=== PATIENT | female | born 1985 | race Caucasian/White ===

== ENCOUNTER 2024-06-17 19:15 | Emergency (ER) | payer OTHER, SELFPAY ==
[2024-06-17] VITALS (9 sets, daily range): BP systolic 104–113; BP diastolic 56–77; PULSE 62–66; RESP 16; TEMP 36.3; O2SAT 98–100; BMI 36.3
--- OUTSIDE RECORDS SUMMARY | 2024-06-17 19:18 | XMS_ITS | Continuity of Care Document ---
Author Name Mauricio User Keithle[place]-a llowed Address Unknown Organization Unknown Address Unknown Procedures FILTER APPLIED:Only known Procedures with Onset Date within the last 5 years Procedure Date Procedure Provider Additiona l Information Status BASIC METABOLIC PANEL (34692) Completed HEPATIC FUNCTION PANEL (37435) Completed CBC W PLT NO DIFF (79778) Completed LIPASE (97884) Completed URINE POCT (15958) Completed UA W/ SEDIMENT EXAM REFLEXED PER CRITERIA (55860) Completed BASIC METABOLIC PANEL (73204) Completed CBC W PLT NO DIFF (50967) Completed ,SERUM (04913) Completed COMP METABOLIC PANEL (40286) Completed CBC W PLT NO DIFF (12489) Completed LIPASE (91260) Completed COMP METABOLIC PANEL (21056) Completed C-REACTIVE PROTEIN (94665) Completed CBC AND DIFFERENTIAL (80041) Completed LIPASE (84541) Completed ADMISSION MED REC MARKER FOR REPORTING AND BPA'S (21152) Completed ADMISSION MED REC MARKER FOR REPORTING AND BPA'S (87754) Completed URINE POCT (57082) Completed UA W/ SEDIMENT EXAM REFLEXED PER CRITERIA (08923) Completed HEPATIC FUNCTION PANEL (85140) Completed CBC W PLT NO DIFF (14123) Completed BASIC METABOLIC PANEL (08765) Completed LIPASE (14079) Completed CBC W PLT NO DIFF (33093) Completed PROTIME-INR (90858) Comp leted BASIC METABOLIC PANEL (38921) Completed ,SERUM (68494) Completed HEPATIC FUNCTION PANEL (73128) Completed LIPASE (19779) Completed Encounters FILTER APPLIED:Only known Encounters with Admission Date within the last 5 years Encounter Location Admission Discharge Billing Code Brand Lead A suki Emergency [id number]. [id number] YANCY BRICKE[facility] Emergency [id number]. [id number] YANCY BRICKEYS Inpatient [facility] Inpatient [facility] Emergency Emergency [id number]. [id number] ARDHA EVANS Emergency Emergency [id number]. [id number] SHAY SHELL Emergency Emergency [id number]. [id number] KETAN MAJOR Emergency [id number]. [id number] QUOC REAGAN
--- NOTE | 2024-06-17 19:19 | CRLHL7_ITS ---
For Patients: As a result of the 21st Century Cures Act, medical imaging exams and procedure reports are released immediately into your electronic medical record. You may view this report before your referring provider. If you have questions, please contact your health care provider. INDICATION: Chest pain. TECHNIQUE: CT chest without contrast, and CTA chest, abdomen and pelvis acquired with 95 cc Isovue 370 IV contrast, dissection protocol. 2D and 3D MIP images for post-processing were performed and interpreted on an independent workstation, and 3D images were permanently archived. COMPARISON: 06/12/2024. FINDINGS: CHEST: Cardiovascular structures: Stable type B aortic dissection extending from the descending thoracic aorta through the abdominal aorta and into the left common iliac artery. Stable ectatic descending thoracic aorta measuring 3.8 cm. Heart size is normal. Main pulmonary artery is normal in caliber. Mediastinum and lidia: No mass or adenopathy. Lungs and pleura: Areas of linear scarring, unchanged. No acute infiltrates. No suspicious nodules. No pleural effusions or pneumothorax. Chest wall and axilla: No mass or adenopathy. Pectus excavatum, unchanged. Bones: Chronic bilateral anterior rib deformities, possibly related to prior Seda procedure. ABDOMEN AND PELVIS: Liver: Unremarkable. Gallbladder and bile ducts: Status post cholecystectomy. Spleen: Unremarkable. Adrenal glands: Unremarkable. Pancreas: Unremarkable. Kidneys: Bilateral nonobstructive renal calculi. No hydronephrosis. GI tract: Normal in caliber. No evidence of obstruction. Status post appendectomy. Lymph nodes: Unremarkable. Vascular structures: Stable type B aortic dissection extending from the descending thoracic aorta through the abdominal aorta and into the left common iliac artery. Celiac trunk, SMA, CORIE, and bilateral renal arteries arise from the true lumen. Incidental note of retroaortic left renal vein. Miscellaneous: Midline abdominal wall scar. No free air or significant free fluid. Pelvic Organs: Unremarkable. Bones: Unremarkable for age. IMPRESSION: 1. Stable type B aortic dissection extending from the descending thoracic aorta and abdominal aorta to the left common iliac artery. 2. No acute abnormality of the chest, abdomen, or pelvis. 3. Incidental findings as above, similar to prior. Please note that all CT scans at this facility use dose modulation, iterative reconstruction, and/or weight-based dosing when appropriate to reduce radiation dose to as low as reasonably achievable. Dictated by Marcin Sierra MD @ 06/17/2024 9:14:14 PM (Electronically Signed)
[2024-06-17 19:34] LABS: Lactate Sepsis w/Reflex* 0.8 mmol/L (0.5-1.9)
[2024-06-17 19:36] LABS: Basophils Absolute Auto 0.03 K/uL (0.00-0.30); Basophils Percent Auto 0.3 % (0.0-3.0); Eosinophils Absolute Auto 0.35 K/uL (0.00-0.50); Eosinophils Percent Auto 3.7 % (0.0-7.0); Hematocrit 36.9 % (33.0-51.0); Immature Granulocytes Abs Auto 0.01 K/uL (0.00-0.30); Immature Granulocytes Pct Auto 0.1 %; Lymphocytes Percent Auto 19.9 % (20-44); Mean Corpuscular HGB Conc 33 gm/dL (32-36); Mean Corpuscular Hemoglobin 28 pg (26-34); Mean Corpuscular Volume 86 fL (80-100); Monocytes Percent Auto 5.1 % (0.0-11.0); Neutrophils Absolute Auto 6.74 K/uL (1.7-7.0); Neutrophils Percent Auto 70.9 % (42.0-72.0); Platelet Count* 273 K/uL (140-440); RDW Coefficient of Variation % 13.4 % (11.5-15.5)
[2024-06-17 19:48] LABS: Slide Review Reflex No
[2024-06-17 19:51] LABS: Albumin* 4.5 g/dL (3.3-5.0); Chloride* 98 mmol/L (96-114); Potassium* 3.3 mmol/L (3.6-5.1); Sodium* 135 mmol/L (135-149)
[2024-06-17 19:53] LABS: Creatinine* 1.6 mg/dL (0.5-1.5); Est. Creatinine Clearance* 54.33; Estimated Glomerular Filt Rate 43 ml/min
[2024-06-17 19:54] LABS: Alanine Aminotransferase* 33 U/L (4-35); Alkaline Phosphatase* 99 U/L (40-150); Anion Gap 9 mEq/L (7-15); Aspartate Amino Transferase* 41 U/L (12-35); Bilirubin Direct* 0.3 mg/dL (0.0-0.5); Bilirubin Total* 0.5 mg/dL (0.1-1.5); Blood Urea Nitrogen* 23 mg/dL (5-24); Calcium* 9.5 mg/dL (8.4-10.6); Carbon Dioxide* 28 mmol/L (20-32); Glucose* 100 mg/dL (60-115); INR 0.87 (0.91-1.10); Prothrombin Time 12.4 Seconds; Total Protein* 7.5 g/dL (6.0-8.3)
[2024-06-17] MEDS: ONDANSETRON 2 MG/ML inj 4 MG IVP (20:21)
[2024-06-17] MEDS: HYDROmorphone 0.5 mg/0.5 ml inj IVP (20:39)
--- NOTE | 2024-06-17 21:26 | ED_ITS ---
HPI - General Adult General Date Seen: 06/17/24 Chief complaint: Chest Pain Stated complaint: Chest pain Time Seen by Provider: 06/17/24 19:19 Source: patient History of Present Illness HPI narrative: Patient is a 38-year-old woman with past medical history notable for type B aortic dissection in 2022. She tells me she was seen at [place] and then transferred to [place]. She was treated medically. She came in by EMS today after developing pain in the middle of her back which she says was there little bit over the past couple of days but much worse today. She says it feels like her previous dissection. She has some pain that radiates into the left shoulder. She does not have chest pain. She says that when she leans forward she feels like she is going to pass out. She has not actually fainted however. She was sick a couple of weeks ago with some vomiting although that is improved. She does not have abdominal pain. No recent trauma. Medics reported asymmetry in her upper extremity blood pressures. Related Data Allergies Allergy/AdvReac Type Severity Reaction Status Date / Time metoclopramide (From Reglan) Allergy Severe Verified 06/17/24 19:24 morphine Allergy Severe Verified 06/17/24 19:24 Quinolones AdvReac Verified 06/17/24 19:24 Review of Systems Status of ROS: Reports: 10 or more systems reviewed and unremarkable except as noted in History and below Exam Narrative: Exam Narrative: Vital signs reviewed In general, alert, nontoxic woman. She looks comfortable, breathing easily. Head: Normocephalic, atraumatic. Eyes: Sclera clear. Pupils equal and reactive. ENT: Mucous membranes moist. Neck: Supple without adenopathy. Heart: Regular rate and rhythm without murmur. Lungs: Clear. No increased work of breathing, crackles or wheezes. Abdomen: Soft, nontender to palpation. No obvious masses. Extremities: Well perfused, pulses intact. No significant edema. Neurologic: Alert, conversant. Speech fluent, face symmetric. Moves all extremities equally. Pulses are intact in both feet. Skin: Warm, dry well perfused. Affect: Normal. Const: Vital Signs, click to edit/add: Vital Signs - 24 hr 06/17/24 19:17 06/17/24 19:17 06/17/24 19:19 Temperature 97.4 F L Pulse Rate Pulse Rate [Right Pulse Oximeter] 66 Respiratory Rate 16 Blood Pressure Blood Pressure [Ri ght Upper Arm] 108/59 L 107/61 Pulse Oximetry 98 98 Oxygen Delivery Me thod Room Air 06/17/24 19:30 06/17/24 19:55 06/17/24 20:03 Temperature Pulse Rate 62 Pulse Rate [Right Pulse Oximeter] Respiratory Rate Blood Pressure 113/60 Blood Pressure [Ri ght Upper Arm] 104/56 L 108/77 Pulse Oximetry 100 Oxygen Delivery Me thod 06/17/24 20:04 06/17/24 20:08 06/17/24 20:12 Temperature Pulse Rate 63 63 Pulse Rate [Right Pulse Oximeter] Respiratory Rate Blood Pressure 111/65 Blood Pressure [Ri ght Upper Arm] 108/59 L Pulse Oximetry 99 99 Oxygen Delivery Me thod 06/17/24 20:15 Temperature Pulse Rate 62 Pulse Rate [Right Pulse Oximeter] Respiratory Rate Blood Pressure Blood Pressure [Ri ght Upper Arm] Pulse Oximetry 100 Oxygen Delivery Me thod Course Course ED Course: On arrival, she was hooked up to cardiac and oximetry monitoring, an IV was established an EKG was done. EKG showed a normal sinus rhythm, ventricular rate of 62. She had no acute ST segment changes, unremarkable T-waves. Labs were ordered and a CT scan dissection protocol was ordered as well. Labs are notable for a normal white blood cell count of 9.5, no left shift. Hemoglobin is 12. INR 8.87, metabolic panel notable for a potassium of 3.3, creatinine is 1.6. I am not certain of her baseline and she does not know either. Otherwise metabolic panel was normal. Her blood sugar was 100, lactate of 0.8, LFTs unremarkable aside from a very minimally elevated AST of 41. Point care troponin was 0. CT scan of the chest abdomen and pelvis dissection protocol by my review showed a type B dissection of the aorta, we did not have comparison is available for review here. We did check blood pressures in both arms here, her systolic pressures in both arms have been around 110, no hypertension. She requested pain medications, notes an allergy to morphine, was given Dilaudid without issue. She also had some Zofran. CT was read by Radiology as showing a stable type B aortic dissection descending thoracic aorta at to the left common iliac artery. There were no other acute abnormalities of the chest abdomen or pelvis. She has nonobstructing kidney stones but no hydronephrosis. Case was reviewed as well with Dr. Cruz, labor relations representative for Cardiology at [facility]. He reviewed the images as well, agrees that this is stable, blood pressure is well controlled, does not feel there is anything else to do from the standpoint of dissection. I have reviewed all this with her. I do not have a clear explanation for her back pain, may be musculoskeletal, but does not appear to be cardiac, vascular, or related to another acute process in the chest abdomen or pelvis. She is concerned about her feeling of faintness when she leans over, will go ahead and give her little bit of normal saline. Unclear to me whether she has some baseline kidney disease or whether she might be a little dehydrated. She was ambulatory to the bathroom without difficulty. She normally doctors in [place], where she lives. According to the senior business objects developer, she had several visits in their system for back and chest pain of undetermined etiology, not clearly related to her dissection. Review of prescription monitoring database shows that she seems to have been on chronic oxycodone at least throughout 2023. This was last filled in March of 2024. It is unclear what the chronic oxycodone was treating. I would recommend against using narcotics for this current pain given absence of a clear diagnosis at this time. Recommend Tylenol, given her creatinine of 1.6, ice or heat, primary care follow-up if not improving over the weekend. Return any time for acute worsening. Vital Signs Vital signs: Initial Vital Signs Temperature 97.4 F L 06/17/24 19:17 Temperature Source Temporal Artery Scan 06/17/24 19:17 Pulse Rate 66 06/17/24 19:17 Pulse Rhythm Regular 06/17/24 19:17 Pulse Strength 3+ Normal 06/17/24 19:17 Respiratory Rate 16 06/17/24 19:17 Blood Pressure 108/59 L 06/17/24 19:17 Blood Pressure Mean 75 06/17/24 19:17 Blood Pressure Position Supine 06/17/24 19:17 Pulse Oximetry 98 06/17/24 19:17 Oxygen Delivery Method Room Air 06/17/24 19:17 Vital Signs Temperature 97.4 F L 06/17/24 19:17 Pulse Rate 66 06/17/24 19:17 Respiratory Rate 16 06/17/24 19:17 Blood Pressure 108/59 L 06/17/24 19:17 Pulse Oximetry 98 06/17/24 19:17 Oxygen Delivery Method Room Air 06/17/24 19:17 Temperature 97.4 F L 06/17/24 19:17 Pulse Rate 62 06/17/24 20:15 Respiratory Rate 16 06/17/24 19:17 Blood Pressure 111/65 06/17/24 20:12 Pulse Oximetry 100 06/17/24 20:15 Oxygen Delivery Method Room Air 06/17/24 19:17 Medications Administered Medications: Discontinued Medications Generic Name Dose Route Start Last Admin Trade Name Freq PRN Reason Stop Dose Admin Hydromorphone HCl 0.5 mg 06/17/24 20:34 06/17/24 20:39 Hydromorphone 0.5 Mg/0.5 Ml Inj IVP 06/17/24 20:35 0.5 mg ONCE ONE Administration Sodium Chloride 500 mls @ 500 mls/hr 06/17/24 21:36 06/17/24 21:57 0.9 % Sodium Chloride 500 Ml IV 06/17/24 22:35 500 mls/hr .Q1H ONE Administration Ondansetron HCl 4 mg 06/17/24 20:15 06/17/24 20:21 Ondansetron 2 Mg/Ml Inj IVP 06/17/24 20:16 4 mg ONCE ONE Administration Medical Decision Making Lab Data Labs: Lab Results 06/17/24 Range/Units 19:31 WBC 9.50 (4.50-11.00) K/uL RBC 4.30 (4.00-5.20) m/uL Hgb 12.0 (12.0-16.0) gm/dL Hct 36.9 (33.0-51.0) % MCV 86 (80-100) fL MCH 28 (26-34) pg MCHC 33 (32-36) gm/dL RDW Coeff of Xavi 13.4 (11.5-15.5) % Plt Count 273 (140-440) K/uL Neut % (Auto) 70.9 (42.0-72.0) % Lymph % (Auto) 19.9 L (20-44) % [place] % (Auto) 5.1 (0.0-11.0) % Eos % (Auto) 3.7 (0.0-7.0) % Baso % (Auto) 0.3 (0.0-3.0) % Neut # (Auto) 6.74 (1.7-7.0) K/uL Lymph # (Auto) 1.90 (0.90-2.90) K/uL [place] # (Auto) 0.50 (0.00-0.90) K/UL Eos # (Auto) 0.35 (0.00-0.50) K/uL Baso # (Auto) 0.03 (0.00-0.30) K/uL Abs Immat Gran (auto) 0.01 (0.00-0.30) K/uL Imm/Tot Granulo (auto) 0.1 % INR 0.87 L (0.91-1.10) Sodium 135 (135-149) mmol/L Potassium 3.3 L (3.6-5.1) mmol/L Chloride 98 (96-114) mmol/L Carbon Dioxide 28 (20-32) mmol/L Anion Gap 9 (7-15) mEq/L BUN 23 (5-24) mg/dL Creatinine 1.6 H (0.5-1.5) mg/dL Estimated Creat Clear 54.33 Estimated GFR 43 ml/min Glucose 100 (60-115) mg/dL Lactate 0.8 (0.5-1.9) mmol/L Calcium 9.5 (8.4-10.6) mg/dL Total Bilirubin 0.5 (0.1-1.5) mg/dL Direct Bilirubin 0.3 (0.0-0.5) mg/dL AST 41 H (12-35) U/L ALT 33 (4-35) U/L Alkaline Phosphatase 99 (40-150) U/L Total Protein 7.5 (6.0-8.3) g/dL Albumin 4.5 (3.3-5.0) g/dL POC Troponin I 0.00 L (0.01-0.04) ng/ml Discharge Plan Discharge Clinical Impression: Back pain, History of aortic dissection Patient Disposition: Home, Self-Care Condition: Stable Instructions: Back Pain (ED) Additional Instructions: CT scans of your chest, abdomen and pelvis show your dissection to be stable. There are no other acute findings. Etiology of your back pain is unclear but this may be musculoskeletal. I would use Tylenol, ice and/or heat for now. Your kidney function was just a little bit elevated at 1.6, so I would avoid ibuprofen for now. If you are not improving over the weekend, please follow-up with your regular doctor next week. Return any time for new or worsening symptoms. Activity Level: No Restrictions Discharge Diet: Regular Follow Up/Referrals: Ye Zuniga MD [Primary Care Provider] - Stand Alone Forms: [facility] Info Instructions
--- OUTSIDE RECORDS SUMMARY | 2024-06-17 21:56 | XMS_ITS | Clinical Summary ---
Author Organization [place] Address [address] [place] [id number] Care Team Providers Care Casey Saw Operator Name Role Phone Ye Zuniga MD Primary Care Provider [phone] Allergies Active Allergy Reactions Criticality Noted Date Comments Metoclopramide Anxiety High 11/23/2019 Quinolones Other (See Comments) 11/04/2022 Fluoroquinolone - Type B AAA Medications amphetamine-dext roamphetamine (ADDERALL XR) 20 MG 24 hr capsule Take 20 mg by mouth daily. Active olmesartan (BENICAR) 40 MG tablet Take 40 mg by mouth daily. Active omeprazole (PRILOSEC) [address] capsule Take 20 mg by mouth daily. Active ondansetron (ZOFRAN ODT) 4 MG ODT tab Take 4 mg by mouth every 8 hours as needed for nausea. Active spironolactone (ALDACTONE) 100 MG tablet Take 100 mg by mouth daily. Active SUMAtriptan (IMITREX) 50 MG tablet Take 50 mg by mouth at onset of headache for migraine. Active tirzepatide-[employer]ig [employer] (ZEPBOUND) 2.5 MG/0.5ML prefilled pen Inject 2.5 mg subcutaneously every 7 days. Active traZODone (DESYREL) 100 MG tablet Take 100 mg by mouth nightly as needed for sleep. Active FLUoxetine (PROZAC) 20 MG capsule Take 20 mg by mouth daily. Active Vitamin D3 (CHOLECALCIFEROL ) 25 mcg (1000 units) tablet Take 25 mcg by mouth daily. Active medroxyPROGESTER one (DEPO-PROVERA) 150 MG/ML IM injection Inject 150 mg into the muscle every 3 months. Active albuterol (PROAIR HFA/PROVENTIL HFA/VENTOLIN HFA) 108 (90 Base) MCG/ACT inhaler Inhale 2 puffs into the lungs every 6 hours as needed for shortness of breath. Active amLODIPine (NORVASC) 10 MG tabletIndication s:Benign essential hypertension Take 1 tablet (10 mg) by mouth daily. 30 tablet 02/10/20 24 Active olopatadine (PATADAY) 0.2 % ophthalmic solution 1 drop daily as needed (Allergies). Active sennosides (SENOKOT) 8.6 MG tabletIndication s:Acute appendicitis with perforation, localized peritonitis, and abscess, without gangrene Take 1-2 tablets by mouth 2 times daily as needed for constipation. 30 tablet 1 02/24/20 24 Active gabapentin (NEURONTIN) 100 MG capsuleIndicatio ns:Acute appendicitis with perforation, localized peritonitis, and abscess, without gangrene Take 2 capsules (200 mg) by mouth 3 times daily for 14 days. 84 capsule 02/25/20 24 Active oxyCODONE (ROXICODONE) 10 MG tabletIndication s:Acute appendicitis with perforation, localized peritonitis, and abscess, without gangrene Take 1 tablet (10 mg) by mouth every 3 hours as needed for moderate pain or severe pain. 40 tablet 02/25/20 24 Active carvedilol (COREG) 25 MG tabletIndication s:Benign essential hypertension,Chr onic dissection of thoracic aorta (H) Take 1.5 tablets (37.5 mg) by mouth 2 times daily (with meals). 90 tablet 02/25/20 24 Active hydrALAZINE (APRESOLINE) 100 MG tabletIndication s:Benign essential hypertension,Chr onic dissection of thoracic aorta (H) Take 1 tablet (100 mg) by mouth every 8 hours. 90 tablet 02/25/20 24 Active Active Problems Problem Noted Date Diagnosed Date Acute appendicitis with perf oration, localized peritonitis, and abscess, without gangrene 02/15/2024 Perforated appendicitis 02/04/2024 Pectus excavatum 07/09/2011 Social History Tobacco Use Types Packs/Day Years Used Date Smoking Tobacco: Never Alcohol Use Standard Drinks/Week Comments Yes 0 (1 standard drink = 0.6 oz pur e alcohol) occassional Adolescent Education Answer Date Record ed Getting School Help Needed Not on file 03/22 Food Insecurity Answer Date Recorded Within the past 12 months, d id you worry that your food would run out before you got money to buy more? No 02/20/2024 Within the past 12 months, d id the food you bought just not last and you didn t have money to get more? No 02/20/2024 Housing Stability Answer Date Recorded Do you have housing? (Mehreen vasquez is defined as stable permanent housing and does not include staying ouside in a car, in a tent, in an abandoned building, in an overnight retirement, or couch-surfing.) Yes 02/20/2024 Are you worried about losing your housing? No 02/20/2024 Financial Resource Strain Answer Date R ecorded Within the past 12 months, h ave you or your family members you live with been unable to get utilities (heat, electricity) when it was really needed? No 02/20/2024 Transportation Needs Answer Date Record ed Within the past 12 months, h as lack of transportation kept you from medical appointments, getting your medicines, non-medical meetings or appointments, work, or from getting things that you need? No 02/20/2024 Interpersonal Safety Answer Date Record ed Do you feel physically and e motionally safe where you currently live? Yes 02/16/2024 Within the past 12 months, h ave you been hit, slapped, kicked or otherwise physically hurt by someone? No 02/16/2024 Within the past 12 months, h ave you been humiliated or emotionally abused in other ways by your partner or ex-partner? No 02/16/2024 Comments No Sex and Gender Information Value Date Recorded Sex Assigned at Not on file Legal Sex Female 4:01 AM [employer] Gender Identity Not on file Sexual Orientation Not on file Last Filed Vital Signs Vital Sign Reading Time Taken Comments Blood Pressure 136/62 02/25/2024 8:57 AM CDT Pulse 94 02/25/2024 7:52 AM CDT Temperature 36.8 C (98.3 F) 02/25/2024 7:52 AM CDT Respiratory Rate 16 02/25/2024 7:52 AM CDT Oxygen Saturation 96% 02/25/2024 7:52 AM CDT Inhaled Oxygen Concentration - - Weight 126.8 kg (279 lb 8.7 oz) 02/21/2024 5:47 AM CDT Height 180.3 cm (5' 11) 02/15/2024 2:43 PM CDT Body Mass Index 38.99 02/15/2024 2:43 PM CDT Plan of Treatment Health Maintenance Due Date Last Done Comments ADVANCE CARE PLANNING 1987 ANNUAL REVIEW OF HM ORDERS 1987 COVID-19 Vaccine (#1) 1992 HIV SCREENING 2002 HEPATITIS C SCREENING 2005 Pneumococcal Vaccine: Pediatrics (0 to 5 Years) and At-Risk Patients (6 to 49 Years) (1 of 2 - PCV) 2006 INFLUENZA VACCINE (#1) 2024 3, 02/14/2011, 02/21/2010 PAP 03/19/2024 03/19/2021, 01/01/2015 YEARLY PREVENTIVE VISIT 03/30/2024 03/30/2023, 03/19 PHQ-2 (once per calendar year) 2024 BMP 02/22/2025 02/23/2024, 02/05, 02/19/2024, Additional history exists GLUCOSE 02/22/2027 02/23/2024, 02/05, 02/20/2024, Additional history exists DTAP/TDAP/TD IMMUNIZATION (4 - Td or Tdap) 03/19/2031 03/19/2021, 07/07/2010, 09/30/1999 RSV VACCINE (1 - 1-dose 75+ series) 2062 HEPATITIS B IMMUNIZATION Completed 005, 10/24/2004, 09/25/2004 HPV IMMUNIZATION Completed 02/21/2007, , 08/09/2006 MENINGITIS IMMUNIZATION Aged Out No l onger eligible based on patient's age to complete this topic RSV MONOCLONAL ANTIBODY Aged Out No l onger eligible based on patient's age to complete this topic Procedures Procedure Name Priority Date/Time Associated Diagnosis Comments BASIC METABOLIC PANEL Routine 02/23/2024 7:10 AM CDT from Last 3 Months or Most Recently Relevant to Health Maintenance Results * (ABNORMAL) Basic metabolic panel (02/23/2024 7:10 AM CDT) Sodium 139 135 - 145 mmol/L [facility]/23[facility]2024 [facility]:30 [facility] Potassium 3.6 3.4 - 5.3 mmol/L 02/23/2024 8:30 AM CDT LABORATORY Chloride 101 98 - 107 mmol/L 02/23/2024 8:30 AM T LABORATORY Carbon Dioxide (CO2) 28 22 - 29 mmol/L 02/23/2024 8:30 AM [facility] Anion Gap 10 7 - 15 mmol/L 02/23/2024 8:30 AM CDT LABORATORY Urea Nitrogen 4.4(L) 6.0 - 20.0 mg/dL 02/23/2024 8:30 AM CDT LABORATORY Creatinine 0.52 0.51 - 0.95 mg/dL 02/23/2024 8:30 AM CDT LABORATORY GFR Estimate >90 >60 mL/min/1.7 3m2 02/23/2024 8:30 AM [facility] Comment:eGFR calculated usin 2020 CKD-EPI equation. Calcium 8.8 8.8 - 10.4 mg/dL 02/23/2024 8:30 AM [facility] Comment:Reference intervals for this test were updated on 12/21/2023 to reflect our healthy population more accurately. There may be differences in the flagging of prior results with similar values performed with this method. Those prior results can be interpreted in the context of the updated reference intervals. Glucose 97 70 - 99 mg/dL 02/23/2024 8:30 AM [facility] Blood STRUCTURE OF RIGHT UPPER LIMB / Unknown Venipuncture / Unknown 02/23/2024 7:10 AM CDT 02/23/2024 7:49 AM CDT us Richar Agudelo MD LAB - BLOOD ORDERABLES Final Re sult LABORATORY [facility] [address], [address] [place] [address], [place] [phone] from Last 3 Months or Most Recently Relevant to Health Maintenance Insurance [employer] Member Subscriber Plan / Payer (Ef fective 2018-Present) Name:Kaur Rudolph Relation to Subscriber:Spouse Name:JEANETH RUDOLPH Date of :1985 (Home) Address: [address] [place] [address] Payer ID:[id number] (NAIC) Type:O Address: [place] [phone] [employer] Member Subscriber Plan / Payer (Ef fective 2018-Present) Name:Kaur Rudolph Relation to Subscriber:Spouse Name:JEANETH RUDOLPH Date of :1985 (Home) Address: [address] [place] [address] Payer ID:[id number] (NAIC) Type:O Address: [place] [phone] [employer] Advance Directives For more information, please contact: [phone] * Full Code (Latest Code Status on File) Date Activated Date Inactivated Comments 02/15/2024 11:43 PM 02/25/2024 4:04 PM All basic a nd advanced life-sustaining interventions are performed as appropriate Question Answer Comments Code status determined by: Discussion with patie nt/ legal decision maker * Full Code Date Activated Date Inactivated Comments 02/04/2024 10:35 PM 02/10/2024 5:44 PM All basic an d advanced life-sustaining interventions are performed as appropriate Question Answer Comments Code status determined by: Discussion with patie nt/ legal decision maker Care Teams Casey Saw Operator Relationship Specialty Start Date End Date Ye Zuniga MD [address] [place] [address] [place] [id number] PCP - General 02/22/24
--- OUTSIDE RECORDS SUMMARY | 2024-06-17 21:56 | XMS_ITS | Clinical Summary ---
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 Primary Care Marko thomas Source Comments Patient records contain information from all sites at [facility]. For routine questions regarding patient records, call [phone] during business hours, M-F 8:00 AM - 5:00 PM Central Time. Record requests for emergency care only can be directed to [phone] at any time.[facility] Allergies Active Allergy Reactions Criticality Noted Date Comments Metoclopramide Anxiety High 11/23/2019 Morphine GI intolerance 03/02/2024 vomiting Quinolones Other (see comments) 11/04/2022 Fluoroquinolone - Type B AAA Medications * This document contains information received from the source organization and may not represent a complete record from that organization. loratadine (CLARITIN) 10 mg tablet Take 10 mg by mouth daily as needed for allergies. Active acetaminophen (TYLENOL) 500 mg tablet Take 2 tablets (1,000 mg total) by mouth every 6 (six) hours as needed for pain. 300 tablet 3 5:47 PM [facility] 04/12/20 23 Active sennosides-docusat e sodium (SENOKOT-S) 8.6-50 mg per tablet Take 1-2 tablets by mouth at bedtime as needed for constipation. Active ondansetron ODT (ZOFRAN-ODT) 4 mg disintegrating tablet Dissolve 1 tablet (4 mg total) in the mouth as needed for nausea or vomiting. 30 tablet 1 08/13/19 24 Active albuterol 90 mcg/actuation inhaler Inhale 2 puffs 4 (four) times a day as needed for wheezing or shortness of breath. 18 g 10/27/19 24 Active traZODone (DESYREL) 100 mg tablet Take 1 tablet (100 mg total) by mouth at bedtime as needed for sleep. 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 180 tablet 3 11/19/19 24 Active amLODIPine (NORVASC) 5 mg tabletIndications: Hypertension Essential Primary,Dissection Aorta (HCC) Take 1 tablet (5 mg total) by mouth daily. 90 tablet 3 11/19/19 24 025 Active omeprazole (PriLOSEC) [address] capsule Take 1 capsule (20 mg total) by mouth every morning before breakfast. 90 capsule 2 11/24/19 24 Active FLUoxetine (PROzac) 20 mg capsuleIndications :Anxiety Generalized Disorder Take 1 capsule (20 mg total) by mouth daily. 90 capsule 3 02/15/20 24 Active diphenhydrAMINE (BenadryL) 25 mg tablet Take 25-50 mg by mouth 2 (two) times a day as needed. Active hydrALAZINE (Apresoline) 100 mg tablet Take 100 mg by mouth every 8 (eight) hours as needed (as needed for elevated BP). 02/25/20 24 Active polyethylene glycol (Miralax) 17 gram powder packetIndications: constipation Take 1 packet by mouth daily as needed for constipation Indications: constipation. Dissolve each 17 g dose in 240 mLs (8 ounces) of beverage. 03/05/20 24 Active methocarbamoL (Robaxin) 750 mg tabletIndications: Spasm Muscle take 1 tablet by mouth every 8 hours as needed for muscle spasm 40 tablet 3 03/21/20 Active NaCl 0.9 % irrigation IRRIGATE WITH 10 ML DIRECTED 3 TIMES DAILY. MOIST TO DRY DRESSING CHANGES 1000 mL 03/20/20 Active NORMAL SALINE FLUSH KIT 10 ML, ACH,Indications:Wo und Infection Subsequent Use as directed 99 kit 03/22/20 Active oxyCODONE (Roxicodone) 10 mg IR tabletIndications: Chronic Pain/Nonacute Pain Take 1 tablet (10 mg total) by mouth every 3 (three) hours as needed for pain Indication: Chronic Pain/Nonacute Pain. Do not take with acute post-surgical prescription 90 tablet 03/31/20 Active OLANZapine (ZyPREXA Zydis) 5 mg disintegrating tablet DISSOLVE 1 TABLET IN MOUTH EVERY 8 HOURS NEEDED FOR NAUSEA AND VOMITING FOR UP TO 20 DOSES Active tirzepatide (Zepbound) 2.5 mg/0.5 mL injection penIndications:Obe sity Body Mass Index 30-39.9 Adult Inject 2.5 mg under the skin every 7 (seven) days. Follow prescriber's dose escalation instructions as tolerated. 2 mL 1 04/28/20 24 Active Additional Information Patient not taking.Reported on 05/17/2024 tirzepatide (Zepbound) 5 mg/0.5 mL injection penIndications:Obe sity Body Mass Index 30-39.9 Adult Inject 5 mg under the skin every 7 (seven) days. Follow prescriber's dose escalation instructions. 2 mL 2 04/28/20 24 Active Additional Information Patient not taking.Reported on 05/17/2024 tirzepatide (Zepbound) 7.5 mg/0.5 mL injection penIndications:Obe sity Body Mass Index 30-39.9 Adult Inject 7.5 mg under the skin every 7 (seven) days. Follow prescriber's dose escalation instructions. 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 30 capsule 07/28/19 25 025 Active spironolactone (Aldactone) 100 mg tablet Take 1 tablet (100 mg total) by mouth daily. 90 tablet 3 06/02/20 24 Active SUMAtriptan (Imitrex) 50 mg tabletIndications: Migraine Without Aura Not Intractable Without Status Migrainosus Take 1 tablet (50 mg total) by mouth as needed for migraine. May repeat dose once in 2 hours if migraine is unresolved. Do not exceed 200 mg in 24 hours. 9 tablet 3 06/05/20 24 Active olmesartan (Benicar) 40 mg tabletIndications: Hypertension Essential Primary Take 1 tablet (40 mg total) by mouth daily. 90 tablet 3 06/05/20 24 Active olmesartan (BENICAR) 40 mg tabletIndications: Hypertension Essential Primary Take 1 tablet (40 mg total) by mouth daily. 90 tablet 3 07/19/19 24 024 Discontin ued(Reord er) SUMAtriptan (IMITREX) 50 mg tabletIndications: Migraine Without Aura Not Intractable Without Status Migrainosus TAKE 1 TABLET BY MOUTH NEEDED FOR MIGRAINE - MAY REPEAT ONCE IN 2 HOURS IF UNRESOLVED - MAX 4 TABLETS IN 24 HOURS 9 tablet 3 10/15/19 24 024 Discontin ued(Reord er) spironolactone (Aldactone) 100 mg tablet Take 1 tablet (100 mg total) by mouth daily. 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 Dystonia 07/19/2023 Attention Deficit Hyperactiv ity Disorder Predominantly Inattentive Type 07/19/2023 Pain Chest 04/11/2023 Hypertensive Heart Disease Without Heart Failure 03/30/2023 Sleep Apnea 01/05/2023 Dissection Aorta 09/14/2022 Fracture Rib Multiple Closed Initial 05/19/2019 Effusion Pleural 08/21/2018 Other Acute Postprocedural Pain 08/21/2018 Chronic Pain Syndrome 08/11/2018 Overview (11/03/2023): Copied from 10/05/2023 PCP note Patient meets the following inclusion criteria: Daily use > 3 months Anticipated filler leaf cutter long use This patient is expected to be on controlled substances filler leaf cutter long. Diagnosis: Chronic pain syndrome/pectus excavatum/aortic dissection (ICD-10 code G89.4/Q67.6/I71.0) Previous interventions: Heat/ice, medical cannabis, physical therapy, surgery Medication prescribed: Oxycodone 10 mg Duration of prescription: Four weeks Number of tablets/duration: 90 Tapering plan: No Frequency of visits: 3-6 months months MNPMP review/documentation: Yes Initial drug screening requested: Yes Urine screening frequency: annually Pharmacy: [facility] 03/14/2018 Obesity Body Mass Index 30-39.9 Adult 02/17/2017 Overview (02/28/2017): Body mass index (BMI) 40.0-44.9, adult\.br\Rule activated problem due to BMI 40- 44 posted on 02/17 at 13:31 CDT. Hypertension Essential Primary 10/30/2016 Overview (12/22/2016): Hypertension (HTN) NOS Migraine Without Aura Not In tractable Without Status Migrainosus 03/12/2015 Pain Cervical 03/12/2015 Administrative Purpose Exam 12/04/2014 Overview (03/30/2018): Overview: Migraine roxicodone 5 mg capsule for severe migraine. Has imitrex as first line. 15 capsules every 2-3 months. Depression Anxiety 09/18/2011 Polycystic Ovary Syndrome 03/16/2011 Lumbosacral spondylosis without myelopathy 10/20 Sprain Of Ligaments Of Cervical Spine Initial En counter 07/28/2010 Rhinitis Allergic 09/19/2007 Anxiety Generalized Disorder Resolved Problems Problem Noted Date Diagnosed Date Resolved Date History Of Falling 01/26/2020 3 Non-Pressure Chronic Ulcer O f Skin Of Other Sites Limited To Breakdown Of Skin 12/16/201810/02 Hypothyroidism 09/01/2011 12/11/2022 Obesity Unspecified 03/31/2007 10/04/19 19 Encounters Date Type Department Care Team Description 06/13/[address] [facility] [place] [facility] Ye Zuniga M.B.BJered, Katlyn 06/04/2024 Refill Department of Family Medicine, [facility], in [place], [place] [address] [place] [address] Ye Zuniga M.B.BSimaSSima, Katlyn Med Refill 06/02/2024 Refill Department of Vascular Medicine in [place], [place] [address] [place] [address] Juan Carlos Reese M.D. 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 Management Contraceptive (Primary Dx) 05/08/2024 Orders Only Department of Obstetrics and Gynecology in [place], [place] [address] [place] [phone] Yomi Chin M.D. Management Contraceptive (Primary Dx) 04/26/2024 Refill Division of Endocrinology in [place], [place] [address] [place] [address] Sal Welch M.D. Med Refill 04/19/2024 11:06 AM [facility] - 04/19/2024 11:59 PM [facility] Emergency [facility] [address] [place] [phone] Discharge Disposition: Home or Self Care 04/19/2024 Orders Only Senior Services in [facility] [address] [place] [phone] Rossi Saha APRN, C.N.P. 04/18/2024 11:00 AM [facility] Nurse Only Department of Obstetrics and Gynecology in [place], [place] [address] [place] [phone] Anthony Foss Jr., M.D. Skillestad, Allyson S, L.P.N. Nurse Visit (Depo Provera injection ) Discharge Disposition: Home or Self Care 04/18/2024 Clinical Communication Department of Family Medicine, [facility], in [place], [place] [address] [place] [address] Ye Zuniga M.B.B.S., Katlyn 04/14/2024 1:12 PM [facility] - 04/14/2024 11:59 PM [facility] Hospital Encounter Department of Radiology, [facility], in [place], [place] [address] [place] [address] iVviana Sevilla APRN, C.N.PSima, M.S.N. Infection Following A Procedure Deep Incisional Surgical Site Initial Encounter Discharge Disposition: Home or Self Care 04/11/2024 8:30 AM [facility] Office Visit Department of Family Medicine, [facility], in [place], [place] [address] [place] [address] Ye Zuniga M.B.B.SSima, M.D. 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 Med Question (Oxycodone ) 03/28/2024 12:56 PM CDT - 03/28/2024 11:59 PM CDT Emergency [facility] [address] [place] [phone] Discharge Disposition: Home or Self Care 03/28/2024 Clinical Communication Department of [facility], [facility], in [address] [phone] Ye Zuniga M.B.BKatlyn Lawton PandaDoc Form ([facility] SN for dressing changes) 03/28/2024 Clinical Communication Department of [facility], in [address] [phone] Ye Zuniga M.B.BKatlyn Lawton PandaDoc Form (Located Within [facility] - Verbal Order - Dressing Changes 03/27/24) 03/27/2024 Clinical Communication Department of [facility], [facility], in [address] [phone] eY Zuniga M.B.B.SKatlyn Gao PandaDoc Form ([facility] POC 03/21-05/19) 03/23/2024 2:00 PM CDT Telemedicine Department of Hospital Internal Medicine in [place], [place] [address] [place] [phone] Johnathon Huffman M.D., M.P.H. Palma Gongora P.A.-C. Lesion Liver (Primary Dx) 03/23/2024 11:27 AM CDT - 03/23/2024 11:59 PM CDT Hospital Encounter Department of Laboratory Medicine in [address] [phone] Johnathon Huffman M.D., M.P.H. Lesion Liver; Enteropathogenic Escherichia Coli Infection Discharge Disposition: Home or Self Care 03/23/2024 Clinical Communication Division of Trauma Critical Care and General Surgery in [address] [phone] Ye Núñez M.D. 03/23/2024 Clinical Communication Department of [facility], in [address] [phone] Ye Zuniga M.BSimaB.SSima, Katlyn PandaDo Form ([facility] PH Order [id number]) 03/22/2024 2:30 PM CDT Telemedicine Department of Hospital Internal Medicine in [address] [phone] Johnathon Huffman M.D., M.P.H. Jenna Mata, GHULAM, C.N.P. Wound Infection Subsequent 03/21/2024 Clinical Communication Department of [facility], [facility], in [address] [phone] Ye Zuniga I. M.B.B.SSima, Katlyn 03/20/2024 Refill Division of Trauma Critical Care and General Surgery in [address] [phone] Leann Charlton P.A.-C. Med Refill 03/20/2024 Clinical Communication Department of [facility], in [address] [phone] Ye Zuniga M.B.B.SSima, SvetlanaD. Communication 03/20/2024 Clinical Communication Department of Family Medicine, [facility], in [place], [place] [address] [facility] [place] [address] Jenna Clarke R.N. Post Hospital Follow-up 03/20/2024 Refill Department of Family Medicine, [facility], in [place], [place] [address] [place] [address] Ye Zuniga M.B.B.S., M.D. Med Refill 03/20/2024 Clinical Communication [facility] [address] [place] [address] Johnathon Huffman M.D., M.P.H. 03/19/2024 Orders Only Department of Obstetrics and Gynecology in [place], [place] [address] [place] [address] Yomi Chin M.D. 03/18/2024 1:03 PM CDT - 03/19/2024 3:27 PM CDT Emergency [facility], [facility], Fourth Floor [address] [place] [address] Yomi Desai P.A.-C. Shah, Vijay, M.D. Shah, Vishal P, M.D., M.P.H. Enteropathogenic Escherichia Coli Infection (Primary Dx); Nausea And Vomiting; Lesion Liver Discharge Disposition: Home or Self Care from Last 3 Months Immunizations Name Administration Dates Next Due 4vHPV (discontinued) 02/21/2007,10/28/2006,08/09 HepB Adult 04/21/2005,10/24/2004,09/25/2004 Influenza, Unspecified 06/10/2012,02/21/2010 MMR 09/30/1999,11/11/1988 SARS-COV-2 (COVID-19) - MODERNA(Discontinued) 10/05/2023(Deferred: Patient decision) Td (Adult), adsorbed 09/30/1999 Tdap 03/19/2021,07/07/2010 Family History Medical History Relation Name Comments Type A aortic dissection Brother speech delay Brother Throat cancer Father naye Brain Tumor Father's Brother 4 genetic testing Maternal Cousin 1 negativ e Pectus excavatum Maternal Cousin 2 Throat cancer Maternal Grandfather Aortic dissection Maternal Grandmother x3 , 54/60s type B/75 Breast cancer Maternal Grandmother Pectus carinatum Maternal Grandmother Depression Mother ganesh Clarke Migraines Mother ganesh Clarke Pectus excavatum Mother ganesh Clarke Pectus carinatum Mother's Brother Congenital heart valve abnormality Mother's Sister Genetic testing Mother's Sister negative ascending aneurysm Mother's Sister repair ed in 60s Aortic aneurysm Other 1 type B Aneurysm of aorta Other 2 Aneurysm of aorta Other 4 Aneurysm of aorta Other 5 Brain Aneurysm Other 7 Breast cancer Paternal Grandmother juan f clarke had it a few times Relation Name Status Comments Brother Alive A/W Daughter 1 Alive A/W Daughter 2 Alive A/W Father naye (Age 55) d. throat cancer Father's Brother 1 Alive A/W Father's Brother 2 Saurabh (Age 65) d. G I issues/intestine infection Father's Brother 3 Alive A/W Father's Brother 4 (Age 60) d. b rain tumor Maternal Cousin 1 Alive n2 A/W Maternal Cousin 2 Alive A/W Maternal Cousin 3 Alive A/W Maternal Grandfather (Age 83) d. Cancer Maternal Grandmother (Age 75) d. Ruptured aortic aneurysm Mother ganesh Clarke Alive Mother's Brother Alive A/W Mother's Sister Alive Other 1 (Age 91) d. rupture d aneurysm Other 2 (Age 55-60) d. aort ic aneurysm Other 3 Alive Other 4 (Age 55-60) d. aort ic aneurysm Other 5 (Age 55-60) d. aort ic aneurysm Other 6 Alive n4 Other 7 (Age 55-60) d. brai n aneurysm Paternal Grandfather (Age 60s) d . Stroke Paternal Grandmother juan f clarke (Age 97) d. old age Social History Tobacco Use Types Packs/Day Years Used Date Smoking Tobacco: Never Passive Smoke Exposure: Never Smokeless Tobacco: Never Tobacco Cessation:Counseling Given: Not Answered Alcohol Use Standard Drinks/Week Comments Yes 1 (1 standard drink = 0.6 oz pur e alcohol) Socially - twice a year [facility] Utilities Answer Date Recorded In the past 12 months has e electric, gas, oil, or water company threatened to shut off services in your home? No 03/18/2024 Humiliation, Afraid, Rape, and Kick questionnair e Answer Date Recorded Within the last year, have y ou been afraid of your partner or ex-partner? No 03/18/2024 Within the last year, have y ou been humiliated or emotionally abused in other ways by your partner or ex-partner? No Within the last year, have y ou been kicked, hit, slapped, or otherwise physically hurt by your partner or ex-partner? No 03/18/2024 Within the last year, have y ou been raped or forced to have any kind of sexual activity by your partner or ex-partner? No 03/18/2024 Social Connection and Isolat ion Panel [NHANES] Answer Date Recorded In a typical week, how many times do you talk on the phone with family, friends, or neighbors? More than three times a week 10/01/2022 How often do you get togethe r with friends or relatives? More than three times a week 10/01/2022 How often do you attend chur ch or holiness services? More than 4 times per year 10/01/2022 Do you belong to any clubs o r organizations such as yazidi groups, unions, fraternal or athletic groups, or school groups? Yes 10/01/2022 How often do you attend meet ings of the clubs or organizations you belong to? More than 4 times per year 10/01/2022 Are you , , di vorced, , never , or living with a partner? 10/01/2022 AUDIT-C Answer Date Recorded Q1: How often do you have a drink containing alc ohol? Monthly or less 10/01/2022 Q2: How many drinks containi ng alcohol do you have on a typical day when you are drinking? 1 or 2 10/01/2022 Q3: How often do you have si x or more drinks on one occasion? Never 10/01/2022 Overall Financial Resource Strain (CARDIA) Answe r Date Recorded How hard is it for you to pa y for the very basics like food, housing, medical care, and heating? Not very hard 10/01/2022 PHQ-2 Answer Date Recorded PHQ-2 Score 2 10/05/2023 [facility] - Occupational Stress Questionnaire Answer Date Recorded Do you feel stress - tense, restless, nervous, or anxious, or unable to sleep at night because your mind is troubled all the time - these days? Very much 10/01/2022 Exercise Vital Sign Answer Date Recorde d On average, how many days pe r week do you engage in moderate to strenuous exercise (like a brisk walk)? 1 day 10/12/2023 On average, how many minutes do you engage in exercise at this level? 30 min 10/12/2023 Hunger Vital Sign Answer Date Recorded Within the past 12 months, y ou worried that your food would run out before you got the money to buy more. Never true 03/18/20 24 Within the past 12 months, t he food you bought just didn't last and you didn't have money to get more. Never true 03/18/2024 PRAPARE - Transportation Answer Date Re corded In the past 12 months, has l ack of transportation kept you from medical appointments or from getting medications? No 03/07 In the past 12 months, has l ack of transportation kept you from meetings, work, or from getting things needed for daily living? No 03/18/2024 Depression Answer Date Recor ded PHQ-9 Total Score (max 27) 8 10/04 Nutrition Answer Date Recorded On average, how many serving s of fruits and vegetables do you eat per day (serving size is equal to 1 cup or approximately the size of a tennis ball)? 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 I [address] a [facility] [place] [address] to live 03/18/2024 Education Answer Date Recorded What is the highest level of school you have completed or the highest degree you have received? Some college, no degree 01/25/2020 Comments No Sex and Gender Information Value Date Recorded Sex Assigned at Female 03/24/2018 8:02 AM CDT Legal Sex Female 4:30 AM [facility] Gender Identity Female 03/24/2018 8:02 AM CDT Sexual Orientation Straight 03/24/2018 8: 02 AM CDT Last Filed Vital Signs Vital Sign Reading Time Taken Comments Blood Pressure 142/80 05/17/2024 4:12 PM [facility] Pulse 75 05/17/2024 4:12 PM [facility] Temperature 36.3 C (97.3 F) 05/17/2024 4:11 PM [facility] UP Respiratory Rate 20 05/17/2024 4:11 PM [facility] UP Oxygen Saturation 94% 03/19/2024 12:00 PM CDT Inhaled Oxygen Concentration - - Weight 119 kg (262 lb 10.9 oz) 05/17/2024 4:11 P M [facility] Height 180 cm (5' 10.87) 04/11/2024 8:18 AM [facility] Body Mass Index 36.77 04/11/2024 8:18 AM [facility] UP Plan of Treatment Upcoming Encounters Date Type Department Care Team (Latest Contact Info) Description 06/20/2024 7:30 AM [facility] Office Visit Department of Family Medicine, [facility], in [place], [place] [address] [place] [address] eY Zuniga M.B.BSimaSSima, MGuillermo [address] [place] [address] 07/05/2024 2:45 PM [facility] Procedure visit Department of Obstetrics and Gynecology in [place], [place] [address], [place] [phone] Yomi Chin M.D. [address] [place] [phone] 07/27/2024 9:00 AM [facility] Clinical Communication Virtual Review in [address] [phone] 07/28/2024 8:20 AM [facility] UP Appointment Department of Laboratory Medicine and Pathology, [facility], in [place], [place] [address] [place] [address] Sal Welch M.D. [address] [place] [address] 07/28/2024 10:30 AM [facility] Office Visit Division of Endocrinology in [place], [place] [address] [place] [address] Sal Welch M.D. [address] [place] [address] Health Maintenance Due Date Last Done Comments Hepatitis C Screening 1987 COVID-19 Vaccine ( season) 2024 Influenza Vaccine (#1) 2024 06/10/2012, 2009 Depression Screening (Annual PHQ-2) 06/07/2024 Office Visit for Blood Pressure Check / Re-check 08/15/2024 05/17/2024, 11/05/2023, 11/05/2023 Visit: Chronic Disease, age 18+ 04/11/2025 04/11/2024 Creatinine Level (Kidney Function Test) 06/12/2025 06/12/2024, 04/19/2024, 03/28/2024, Additional history exists Glucose Test for Med Monitoring 06/12/2025 06/12/2024, 04/19/2024, 03/28/2024, Additional history exists Potassium Level 06/12/2025 06/12/2024, 04/07, 03/28/2024, Additional history exists Sodium Level 06/12/2025 06/12/2024, 04/07, 03/28/2024, Additional history exists Cervical/Vaginal Cancer Screening 03/19/2026 03/19/2021, 03/19/2021, 10/22/2016, Additional history exists Lipid (Cholesterol) Screening 11/14/2027 11/13/2022, 10/22/2016 DTaP,Tdap,and Td Vaccines (4 - Td or Tdap) 03/19/2031 03/19/2021, 07/07/2010, 09/30/1999 Hepatitis B Vaccines Completed 04/21/2005, 10/24/2004, 09/25/2004 HPV Vaccines Completed 02/21/2007, 10/06, 08/09/2006 HIV Screening Completed 05/27/2012 IPV Vaccines Aged Out No longer eligi ble based on patient's age to complete this topic Pneumococcal vaccine (0-49 years) Aged Out No longer eligible based on patient's age to complete this topic Medical Devices Explanted Type Area Print Line Feeder Device Identifier Shelf Expiration Date Model / Serial / Lot Plt Pectus Lrn [facility] 14 - [id number] Implanted:Qty: 1 on 08/08/2018 by Colt Schafer M.D. at [facility] Explanted:Qty: 1 on 02/27/2022 by Len Leija M.D., Ph.D. Hardware e.g. 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 Routine 04/16/2024 12:49 PM HOOKER UP Arrhythmia Atrial CT ABDOMEN PELVIS WITH IV CONTRAST RAD - Routine (most inpatients and all outpatients) 04/14/2024 2:15 PM HOOKER UP Infection Following A Procedure Deep Incisional Surgical Site Initial Encounter CT CHEST ABDOMEN PELVIS ANGIOGRAM WITH IV CONTRAST RAD - Semiurgent (Fast; most ED patients; some inpatients) 03/28/2024 2:[address] ABDOMEN PELVIS WITH IV CONTRAST RAD - Semiurgent (Fast; most ED patients; some inpatients) 03/28/2024 2:51 PM CDT DX ABDOMEN SUPINE AND UPRIGHT 2 VIEWS RAD - Semiurgent (Fast; most ED patients; some inpatients) 03/26/2024 4:09 PM CDT CBC WITH DIFFERENTIAL, B Routine 03/23/2024 11:33 AM CDT Enteropathogenic Escherichia Coli Infection HEPATIC FUNCTION PANEL, S Routine 03/23/2024 11:33 AM CDT Lesion Liver PHOSPHORUS (INORGANIC), S Routine 03/19/2024 10:00 AM CDT MAGNESIUM, S Routine 03/19/2024 10:00 AM CDT COMPREHENSIVE METABOLIC PANEL, S/P Routine 03/19/2024 10:00 AM CDT CBC WITH DIFFERENTIAL, B Routine 03/19/2024 10:00 AM CDT GI PATHOGEN PANEL, PCR, F Routine 03/19/2024 4:21 AM CDT TROPONIN T, 2H/6H REFLEX, 5TH GEN, P Timed 03/18/2024 5:11 PM CDT ECG STAT 03/18/2024 4:[address] ABDOMEN PELVIS WITH IV CONTRAST RAD - Semiurgent (Fast; most ED patients; some inpatients) 03/18/2024 4:[address] CHEST ANGIOGRAM ACUTE CHEST PAIN WITH IV CONTRAST (ED ONLY) RAD - Semiurgent (Fast; most ED patients; some inpatients) 03/18/2024 4:11 PM CDT TYPE AND SCREEN Routine 03/18/2024 1:40 PM CDT PROTHROMBIN TIME (PT), P STAT 03/18/2024 1:40 PM CDT TROPONIN T, BASELINE, 5TH GEN, P STAT 03/18/2024 1:40 PM CDT NT-PRO B-TYPE NATRIURETIC PEPTIDE (BNP), S STAT 03/18/2024 1:40 PM CDT BASIC METABOLIC PANEL, S/P STAT 03/18/2024 1:40 PM CDT CBC WITH DIFFERENTIAL, B STAT 03/18/2024 1:40 PM CDT ECG STAT 03/18/2024 1:13 PM CDT LIPID PANEL, S Routine 11/13/2022 8:21 AM CDT Screening Lipid HPV WITH GENOTYPING, PCR, THINPREP Routine 03/19/2021 5:07 PM CDT HXZZORDERS Routine 05/27/2012 9:39 AM HOOKER UP from Last 3 Months or Most Recently Relevant to Health Maintenance Results * HOLTER MONITOR - IN CLINIC 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 The basic rhythm was sinus with sinus arrhythmia and first-degree AV delay. The total analyzed time was 1d 23h 39m. The heart rate varied from 58 to 141 bpm. The average HR was 81 bpm. 2. Premature ventricular complexes were noted singly. There were 30 PVCs recorded with a PVC burden of less than 1%. 3. Premature supraventricular complexes were noted singly and in two 3-4 beat atrial runs with a maximum heart rate of 140 bpm. There were 26 PACs recorded with a PAC burden of less than 1%. 4. A total of 2 symptomatic events were noted. The basic rhythm was sinus with sinus arrhythmia and first-degree AV delay. The heart rate varied from 112 to 123 bpm. No ectopy was present. Cis Coordinator: KOTA Spann / KOTA Momin Procedure Note Shahid Mosqueda M.D. - 03/20/2024 [place] 1. The basic rhythm was sinus with sinus arrhythmia and first-degree AVdelay. The total analyzed time was 1d 23h 39m. The heart rate varied from58 to 141 bpm. The average HR was 81 bpm. 2. Premature ventricular complexes were noted singly. There were 30 PVCsrecorded with a PVC burden of less than 1%. 3. Premature supraventricular complexes were noted singly and in two 3-4beat atrial runs with a maximum heart rate of 140 bpm. There were 26 PACsrecorded with a PAC burden of less than 1%. 4. A total of 2 symptomatic events were noted. The basic rhythm was sinuswith sinus arrhythmia and first-degree AV delay. The heart rate variedfrom 112 to 123 bpm. No ectopy was present. Cis Coordinator: KOTA Spann / KOTA Momin Ye Banuelos M.D. CV CARDIAC SERV ICES PROCEDURES Final Result INFOBIONIC MOME NA * CT Abdomen Pelvis with IV Contrast (04/14/2024 2:15 PM HOOKER UP) Only the most recent of3 resultswithin the time period is included. Anatomical Region Laterality Modality Abdomen, Pelvis, Abdominal R ST LOS, Abdominal ARZ LOS, Abdominal FLA LOS N/A Computed Tomograp hy, Computed Tomography 04/14/2024 2:12 PM HOOKER UP Impressions 04/14/2024 3:34 PM HOOKER UP 1. Resolving postoperative changes at the ileocecectomy, as described, with continuing decrease in focal inflammation between the right lobe of the liver and abdominal wall. 2. New nonobstructive proximal left ureteral stone, with bilateral calyceal tip stones. 3. Stable aortic dissection. 4. Negative for new, increased, or worrisome fluid collections. Narrative 04/14/2024 3:34 PM HOOKER UP EXAM: CT ABDOMEN PELVIS WITH IV CONTRAST COMPARISON: Prior abdominopelvic CT scans of 03/28/2024, 03/18/2024, and 03/02/2024. FINDINGS: Postsurgical changes of exploratory laparotomy with small bowel resection and ileocecectomy for perforated appendicitis. Resolving postoperative changes at the [id number] ileoascending colostomy, which is widely patent (). Slight decrease in persistent nodular soft tissue just posterior to the ascending colon, which is decreasing slowly ( and ). Prior scans have demonstrated inflammatory changes and fluid collection between/involving the right lobe of the liver and adjacent posterior abdominal wall. Negative for well-defined fluid collection here, but continuing focal inflammatory changes between the liver and the adjacent abdominal wall (see 348 and ). Stable findings of aortic dissection with patent mesenteric and renal vessels with the dissection extending into the left common iliac artery. Lateral nonobstructing calyceal tip stones in both kidneys with 3 mm nonobstructive stone in proximal left ureter (see 457). Prior cholecystectomy. Otherwise normal appearance to the colorectum and small bowel, without intra-abdominal fluid collection. Healing midline abdominal wound. Remainder negative and unchanged. Procedure Note Devante Goodwin M.D. - 04/14/2024 EXAM: CT ABDOMEN PELVIS WITH IV CONTRAST COMPARISON: Prior abdominopelvic CT scans of 03/28/2024, 03/18/2024, and03/02/2024. FINDINGS: Postsurgical changes of exploratory laparotomy with small bowelresection and ileocecectomy for perforated appendicitis. Resolvingpostoperative changes at the [id number] ileoascending colostomy, whichis widely patent (). Slight decrease in persistent nodular soft tissue just posterior to the ascendingcolon, which is decreasing slowly ( and ). Prior scans have demonstrated inflammatory changes and fluid collectionbetween/involving the right lobe of the liver and adjacent posteriorabdominal wall. Negative for well-defined fluid collection here, butcontinuing focal inflammatory changes between the liver and the adjacent abdominal wall (see 3/48 and ). Stable findings of aortic dissection with patent mesenteric and renalvessels with the dissection extending into the left common iliac artery. Lateral nonobstructing calyceal tip stones in both kidneys with 3 mmnonobstructive stone in proximal left ureter (see ). Priorcholecystectomy. Otherwise normal appearance to the colorectum and small bowel, withoutintra- abdominal fluid collection. Healing midline abdominal wound.Remainder negative and unchanged. IMPRESSION: 1. Resolving postoperative changes at the ileocecectomy, as described,with continuing decrease in focal inflammation between the right lobe ofthe liver and abdominal wall. 2. New nonobstructive proximal left ureteral stone, with bilateralcalyceal tip stones. 3. Stable aortic dissection. 4. Negative for new, increased, or worrisome fluid collections. us Viviana Sevilla APRN, C.N.P., M.S.N. IMG C T PROCEDURES Final Result * CT Chest Abdomen Pelvis Angiogram with IV Contrast (03/28/2024 2:55 PM CDT) Anatomical Region Laterality Modality Chest, Abdomen, Pelvis, Card iovascular RST LOS, Abdominal ARZ LOS, Thoracic ARZ LOS, Vascular Interventional ARZ LOS, Thoracic FLA LOS, Procedural, Vascular Interventional NWWI LOS Computed Tomography 03/28/2024 2:50 PM CDT Impressions 03/28/2024 3:25 PM CDT Stable type B aortic dissection. No acute findings in the chest. Narrative 03/28/2024 3:25 PM CDT EXAM: CT CHEST ABDOMEN PELVIS ANGIOGRAM WITH IV CONTRAST Including 3D image post-processing with or without AI assistance. COMPARISON: None FINDINGS: Partially visualized abdominal findings reported separately. The central pulmonary artery filling defect. Similar appearance of type B aortic dissection. Dissection begins in the descending thoracic aorta and extends inferiorly into the distal left common iliac artery. Persistent blood flow to the false lumen. True lumen feeds the celiac, SMA, left renal and CORIE. True lumen likely feeds the right renal artery. Similar diameter of the aorta at the start of the dissection, measuring up to 4 cm. At the level of the inferior mesenteric artery the aorta measures 2.6 cm, previously 25 mm on 12/10/2023. Mediastinal and hilar nodes are unremarkable. Pectus excavatum. No pneumothorax or pleural effusion. The central tracheobronchial tree is patent. Reticular opacities of the lingula, right middle lobe and left lower lobe, likely scarring. No suspicious bone lesions. Procedure Note Misha Sharp M.D. - 03/28/2024 EXAM: CT CHEST ABDOMEN PELVIS ANGIOGRAM WITH IV CONTRAST Including 3D image post-processing with or without AI assistance. COMPARISON: None FINDINGS: Partially visualized abdominal findings reported separately. The central pulmonary artery filling defect. Similar appearance of type Baortic dissection. Dissection begins in the descending thoracic aorta andextends inferiorly into the distal left common iliac artery. Persistentblood flow to the false lumen. True lumen feeds the celiac, SMA, left renal and CORIE. True lumen likelyfeeds the right renal artery. Similar diameter of the aorta at the startof the dissection, measuring up to 4 cm. At the level of the inferiormesenteric artery the aorta measures 2.6 cm, previously 25 mm on 12/10/2023. Mediastinal and hilar nodes are unremarkable. Pectus excavatum. No pneumothorax or pleural effusion. The central tracheobronchial tree ispatent. Reticular opacities of the lingula, right middle lobe and leftlower lobe, likely scarring. No suspicious bone lesions. IMPRESSION: Stable type B aortic dissection. No acute findings in the chest. Hua Gold M.D. [facility] PROCEDURES Final Result * DX Abdomen Supine and Upright 2 Views (03/26/2024 4:09 PM CDT) Anatomical Region Laterality Modality Abdomen, Abdominal RST LOS, Abdominal ARZ LOS, Abdominal FLA LOS Right Digital Radiography Impressions 03/26/2024 4:14 PM CDT Nonspecific abdomen. Narrative 03/26/2024 4:14 PM CDT EXAM: DX ABDOMEN SUPINE AND UPRIGHT 2 VIEWS COMPARISON: 12/11/2013 FINDINGS: There is a nonspecific bowel gas pattern with no evidence of obstruction or free air. Postoperative cholecystectomy changes are noted in the right upper abdomen. Additional postoperative changes are identified in the right mid abdominal region. Procedure Note José Luis Dickerson M.D. - 03/26/2024 EXAM: DX ABDOMEN SUPINE AND UPRIGHT 2 VIEWS COMPARISON: 12/11/2013 FINDINGS: There is a nonspecific bowel gas pattern with no evidence ofobstruction or free air. Postoperative cholecystectomy changes are notedin the right upper abdomen. Additional postoperative changes areidentified in the right mid abdominal region. IMPRESSION: Nonspecific abdomen. Yomi De La Cruz [facility] PROCEDUR ES Final Result * (ABNORMAL) Hepatic Function Panel (03/23/2024 11:33 AM CDT) Bilirubin, Total, P 0.4 0.0 - 1.2 mg/dL 03/23/2024 1:31 PM CDT OWAT Bilirubin, Direct, P 0.1 0.0 - 0.3 mg/dL 03/23/2024 1:31 PM CDT OWAT Aspartate Aminotransferase (AST), P 53(H) 8 - 43 U/L 03/23/2024 1:31 PM CDT OWAT Alanine Aminotransferase (ALT), P 20 7 - 45 U/L 03/23/2024 1:31 PM CDT OWAT Alkaline Phosphatase, P 147(H) 35 - 104 U/L 03/23/2024 1:31 PM CDT OWAT Albumin, P 4.0 3.5 - 5.0 g/dL 03/23/2024 1:31 PM CDT OWAT Protein, Total, P 7.5 6.3 - 7.9 g/dL 03/23/2024 1:31 PM CDT OWAT Blood (Blood, Venous) 03/23/2024 11:33 AM CDT 03/23/2024 1:31 PM CDT Johnathon Huffman M.D., M.P.H. LAB BLOOD ADD-ON Suni l Result [facility] [address] [place] [address], [facility] OWAT [facility] [place] [address] [place] [address] * (ABNORMAL) CBC with Differential, Blood (03/23/2024 11:33 AM CDT) Only the most recent of3 resultswithin the time period is included. Hemoglobin 10.8(L) 11.6 - 15.0 g/dL 03/23/2024 11:41 AM CDT FB60 Hematocrit 34.5(L) 35.5 - 44.9 % 03/23/2024 11:41 AM CDT FB60 Erythrocytes 3.92 3.92 - 5.13 x10(12)/L 03/23/2024 11:41 AM CDT FB60 MCV 88.0 78.2 - 97.9 fL 03/23/2024 11:41 AM CDT FB60 RBC Distrib Width 14.3 12.2 - 16.1 % 03/23/2024 11:41 AM CDT FB60 Platelet Count 369 157 - 371 x10(9)/L 03/23/2024 11:41 AM CDT FB60 Leukocytes 8.6 3.4 - 9.6 x10(9)/L 03/23/2024 11:41 AM CDT FB60 Neutrophils 5.40 1.56 - 6.45 x10(9)/L 03/23/2024 11:41 AM CDT FB60 Lymphocytes 2.65 0.95 - 3.07 x10(9)/L 03/23/2024 11:41 AM CDT FB60 Monocytes 0.38 0.26 - 0.81 x10(9)/L 03/23/2024 11:41 AM CDT FB60 Eosinophils 0.17 0.03 - 0.48 x10(9)/L 03/23/2024 11:41 AM CDT FB60 Basophils <0.04 0.01 - 0.08 x10(9)/L 03/23/2024 11:41 AM CDT FB60 Blood (Blood, Venous) 03/23/2024 11:33 AM CDT 03/23/2024 11:33 AM CDT Johnathon Huffman M.D., M.P.H. LAB BLOOD ADD-ON Suni l Result [facility] [address] [place] [address], [place] FB60 [facility] [place] [address] [place] [address] * Phosphorus Inorganic (03/19/2024 10:00 AM CDT) Phosphorus (Inorganic), S 3.7 2.5 - 4.5 mg/dL 03/19/2024 12:07 PM CDT DTL Blood (Blood, Venous) 03/19/2024 10:00 AM CDT 03/19/2024 11:36 AM CDT Bob Alvarez APRN, C.N.P., D.N.P. LAB BLOOD ADD-ON Final Result Performing Organization Address City/[facility]/ZIP Co de Phone Number [facility] [address] [place] [address], [facility] [address] [place] [address] * Magnesium (03/19/2024 10:00 AM CDT) Magnesium, S 1.9 1.7 - 2.3 mg/dL 03/19/2024 12:07 PM CDT DTL Blood (Blood, Venous) 03/19/2024 10:00 AM CDT 03/19/2024 11:36 AM CDT Bob Alvarez APRN, C.N.P., D.N.P. LAB BLOOD ADD-ON Final Result [facility] [address] [place] [address], [facility] [address] [place] [address] * (ABNORMAL) Comprehensive Metabolic Panel (03/19/2024 10:00 AM CDT) Potassium, S 3.8 3.6 - 5.2 mmol/L 03/19/2024 12:07 PM CDT DTL Sodium, S 136 135 - 145 mmol/L 03/19/2024 12:07 PM CDT DTL Chloride, S 98 98 - 107 mmol/L 03/19/2024 12:07 PM CDT DTL Bicarbonate, S 24 22 - 29 mmol/L 03/19/2024 12:07 PM CDT DTL Anion Gap 14 7 - 15 03/19/2024 12:07 PM CDT DTL BUN (Blood Urea Nitrogen), S 7 6 - 21 mg/dL 03/19/2024 12:07 PM CDT DTL Creatinine 0.63 0.59 - 1.04 mg/dL 03/19/2024 12:07 PM CDT DTL Estimated GFR (eGFR) >90 >=60 mL/min/BS A 03/19/2024 12:07 PM CDT DTL Comment: Estimated GFR calculated using the 2020 CKD_EPI creatinine equation. Calcium, Total, S 9.3 8.6 - 10.0 mg/dL 03/19/2024 12:07 PM CDT DTL Glucose, S 100 70 - 140 mg/dL 03/19/2024 12:07 PM CDT DTL Protein, Total, S 7.1 6.3 - 7.9 g/dL 03/19/2024 12:07 PM CDT DTL Albumin, S 3.8 3.5 - 5.0 g/dL 03/19/2024 12:07 PM CDT DTL Aspartate Aminotransferase (AST), S 62(H) 8 - 43 U/L 03/19/2024 12:07 PM CDT DTL Alkaline Phosphatase, S 168(H) 35 - 104 U/L 03/19/2024 12:07 PM CDT DTL Alanine Aminotransferase (ALT), S 17 7 - 45 U/L 03/19/2024 12:07 PM CDT DTL Bilirubin, Total, S 0.5 0.0 - 1.2 mg/dL 03/19/2024 12:07 PM CDT DTL Blood (Blood, Venous) 03/19/2024 10:00 AM CDT 03/19/2024 11:36 AM CDT Minaterrell Aponet Paula Alvarez APRN.N.P., D.N.P. LAB BLOOD ADD-ON Final Result [facility] [address] [place] [address], [facility] DTL [facility] [address] [place] [address] * (ABNORMAL) GI Pathogen Panel, PCR, Feces (03/19/2024 4:21 AM CDT) Specimen Source STOOL 6:54 AM CDT DTL Campylobacter species Negative Negative 03/19/2024 6:54 AM CDT DTL C. difficile toxin Negative Negative 2023 6:54 AM CDT DTL Plesiomonas shigelloides Negative Negative 03/19/2024 6:54 AM CDT DTL Salmonella species Negative Negative 2023 6:54 AM CDT DTL Vibrio species Negative Negative 03/19/2024 6:54 AM CDT DTL Vibrio cholerae Negative Negative 6:54 AM CDT DTL Yersinia species Negative Negative 03/19/20 6:54 AM CDT DTL Enteroaggregative E. coli (EAEC) Negative Negative 03/19/2024 6:54 AM CDT DTL Enteropathogenic E. coli (EPEC) Positive(A ) Negative 03/19/2024 6:54 AM CDT DTL Comment: A positive EPEC result may reflect either asymptomatic carriage or diarrhea caused by EPEC. Enterotoxigenic E. coli (ETEC) Negative Negative 03/19/2024 6:54 AM CDT DTL Shiga toxin producing E. coli Negative Negative 03/19/2024 6:54 AM CDT DTL Shigella/Enteroinvas veronica E. coli Negative Negative 03/19/2024 6:54 AM CDT DTL Cryptosporidium species Negative Negative 03/19/2024 6:54 AM CDT DTL Cyclospora cayetanensis Negative Negative 03/19/2024 6:54 AM CDT DTL Entamoeba histolytica Negative Negative 03/19/2024 6:54 AM CDT DTL Giardia Negative Negative 03/19/2024 6:54 AM CDT DTL Adenovirus F40/41 Negative Negative 024 6:54 AM CDT DTL Astrovirus Negative Negative 03/19/2024 6:54 AM CDT DTL Norovirus GI/GII Negative Negative 03/19/20 24 6:54 AM CDT DTL Rotavirus Ag, F Negative Negative 6:54 AM CDT DTL Sapovirus Negative Negative 03/19/2024 6:54 AM CDT DTL Comment: ----ADDITIONAL INFORMATION---- This assay is performed using the FDA-cleared FilmArray GI Panel ([employer] Semi-Urgent This is a semi-urgen t result(DIAS) [facility] Stool (Stool) 03/19/2024 4:2 1 AM CDT 03/19/2024 5:14 AM CDT us Bob Alvarez APRN, C.N. P., D.N.P. LAB MICROBIOLOGY - GENERAL ORDERABLES Final Result Performing Organization Address City/[facility]/ZIP Co de Phone Number [facility] [address] [place] [address], [facility] DTL [address] [facility] [address] [place] [address] * Troponin T, 2 Hour with 6 Hour Reflex, 5th Gen (03/18/2024 5:11 PM CDT) Troponin T, 2 hr, 5th gen <6 <=10 ng/L 03/18/2024 5:36 PM CDT STMA 2H Delta 0 ng/L 03/18/2024 5:36 PM CDT STMA Comment:6 hour collection no t indicated. 2H Delta Interp Not Changing 03/18/2024 5:36 PM CDT STMA Blood 03/18/2024 5:11 PM CDT 03/18/2024 5:14 PM CDT us Mary Soto APRN, C.N.P. LAB BLOOD TROPONI N Final Result Performing Organization Address City/[facility]/ZIP Co de Phone Number [facility] [address] [place] [address], [place] STMA [facility] [address] [place] [address] * ECG 12 Lead (03/18/2024 4:54 PM CDT) Only the most recent of2 resultswithin the time period is included. Ventricular Rate ECG/Min 76 BPM MUSE NH Interval 220 ms MUSE QRSD Interval 88 ms MUSE QT Interval 396 ms MUSE QTC Interval 445 ms MUSE P [place] 54 degrees MUSE R [place] 130 degrees MUSE T Wave [place] 75 degrees MUSE 03/18/2024 4:54 PM CDT 03/18/2024 4:58 PM CDT Impressions MUSE - 03/18/2024 4:58 PM CDT Sinus rhythm with 1st degree A-V block Right axis deviation Nonspecific T wave abnormality When compared with ECG of 18-Mar-2024 13:13, No significant change was found Reviewed by KOTA Hartley Narrative Procedure Note Shahid Mosqueda M.D. - 03/18/2024 IMPRESSION: Sinus rhythm with 1st degree A-V block Right axis deviation Nonspecific T wave abnormality When compared with ECG of 18-Mar-2024 13:13, No significant change was found Reviewed by KOTA Hartley Yomi Desai P.A.-C. ECG ORDERABLES Final Res ult MUSE NA * CT Chest Angiogram Acute Chest Pain with IV Contrast (ED only) (03/18/2024 4:11 PM CDT) Anatomical Region Laterality Modality Chest, Cardiovascular RST LO S, Thoracic ARZ LOS, Cardiovascular FLA LOS Computed Tomography, C omputed Tomography 03/18/2024 3:48 PM CDT Impressions 03/18/2024 4:49 PM CDT 1. Negative for acute pulmonary embolism. 2. Type B aortic dissection is slightly increased in diameter in some locations when compared to prior examination, however is not significantly changed. For example at the abdominal hiatus it currently measures 3.6 cm compared to 3.3 cm on December 10, 2023. Persistent blood flow into the false lumen as described above. 3. No significant coronary artery atherosclerosis or stenosis. CAD-RADS category 0. 4. Persistent hypoattenuating right hepatic lobe lesion is most consistent with developing abscess given the clinical history of perforated appendicitis. The discrete fluid attenuation collection is however decreased in conspicuity since March 02, 2024. 5. Interval postsurgical changes following abdominal wall irrigation and debridement with no residual organized abdominal wall collections. 6. Inflammatory changes about the right lower quadrant anastomosis are decreased from prior. Narrative 03/18/2024 4:49 PM CDT EXAM: CT CHEST ANGIOGRAM ACUTE CHEST PAIN WITH IV CONTRAST (ED ONLY), CT ABDOMEN PELVIS WITH IV CONTRAST COMPARISON: Chest abdomen and pelvis angiogram December 10, 2023. CT abdomen and pelvis with IV contrast March 02, 2024 FINDINGS: PULMONARY ARTERIES: Negative for acute pulmonary embolism. Stable mild enlargement of the main pulmonary artery to maximum diameter of 34 mm. AORTA: Normal caliber ascending thoracic aorta. Left-sided aortic arch with conventional branching pattern. Visualized great vessels are patent. Type B aortic dissection is similar in orientation, and begins in the proximal descending thoracic aorta and extends into the distal left common iliac artery. No increased extent since prior. No evidence of aneurysmal rupture. The diameter of the aorta, including the true and false lumens, is as follows using a double oblique technique: -At the level of the proximal dissection the aorta measures approximately 4 cm, stable. -At the level of the abdominal hiatus it measures approximately 3.6 cm compared to 3.3 cm on prior. -Slightly increased size just above the bifurcation measuring approximately 2.6 cm compared to 2.5 cm on prior. Persistent flow through the false lumen. The true lumen supplies the celiac, superior mesenteric, left renal, and inferior mesenteric arteries. Right renal artery supplied by the true and false lumen. No significant change from prior. Symmetric nephrograms. CORONARY ARTERIES: Origins/course: Conventional origin and course of the coronary arteries. Dominance: Right Left Main Coronary: Widely patent without detectable plaque. Left Anterior Descending: Patent without detectable plaque or stenosis, including diagonal branches. Left Circumflex: Patent without detectable plaque or stenosis, including obtuse marginal branches. Right Coronary Artery: Patent without detectable plaque or stenosis. The posterior descending and posterolateral branches are patent. OTHER CARDIAC FINDINGS: Grossly normal cardiac chamber sizes. No regional wall motion abnormalities. No resting first-pass myocardial perfusion defects. No intra-cardiac mass or thrombus. Normal-appearing pericardium. ADDITIONAL FINDINGS: Central airways are clear. Similar mild stenosis of the left main bronchus. Linear atelectasis versus scarring in the right middle, and left lower lobes. Negative for pleural effusion or pneumothorax. No focal consolidations. No thoracic adenopathy. Postsurgical changes of exploratory laparotomy with ileocecal resection for history of perforated appendicitis. Decreased mesenteric edema about the anastomosis. Persistent, but slightly decreased colonic wall thickening near the anastomosis. Similar to slightly increased diffuse colonic thickening throughout the transverse colon and descending colon with some foci of intramural fatty deposition. Normal caliber colon and small bowel. Hypoattenuating lesion in the posterior right hepatic lobe (3/51) measuring approximately 2.5 x 2.6 cm. The well-defined fluid containing portion is decreased in conspicuity since March 02, 2024. Cholecystectomy. Spleen, adrenals, and pancreas are normal. Postoperative changes of abdominal wall irrigation performed March 02, 2024. The previously described fluid collection along the midline anterior abdominal wall has resolved with a persistent midline abdominal wall defect. Surrounding subcutaneous edema with no organized fluid collection. No lymphadenopathy. No acute or suspicious bony lesions. CAD-RADS CATEGORIES: (based on most severe single lesion) 0: 0%, No stenosis 1: 1-24%, Minimal stenosis 2: 25-49%, Mild stenosis 3: 50-69%, Moderate stenosis 4A: 70-99% single or 2 vessel involvement, Severe stenosis 4B: LM > 50% or 3 vessel >/= 70%, Severe stenosis 5: 100%, Occluded Modifiers: N: Non-diagnostic segment(s) S: Stent G: Graft V: Vulnerable plaque Procedure Note Aleksandar Light M.D., Ph.D. - 03/18/2024 EXAM: CT CHEST ANGIOGRAM ACUTE CHEST PAIN WITH IV CONTRAST (ED ONLY), CTABDOMEN PELVIS WITH IV CONTRAST COMPARISON: Chest abdomen and pelvis angiogram December 10, 2023. CT abdomenand pelvis with IV contrast March 02, 2024 FINDINGS: PULMONARY ARTERIES: Negative for acute pulmonary embolism. Stable mild enlargement of the mainpulmonary artery to maximum diameter of 34 mm. AORTA: Normal caliber ascending thoracic aorta. Left-sided aortic arch withconventional branching pattern. Visualized great vessels are patent. TypeB aortic dissection is similar in orientation, and begins in the proximaldescending thoracic aorta and extends into the distal left common iliac artery. No increased extent sinceprior. No evidence of aneurysmal rupture. The diameter of the aorta,including the true and false lumens, is as follows using a double obliquetechnique: -At the level of the proximal dissection the aorta measures approximately4 cm, stable. -At the level of the abdominal hiatus it measures approximately 3.6 cmcompared to 3.3 cm on prior. -Slightly increased size just above the bifurcation measuringapproximately 2.6 cm compared to 2.5 cm on prior. Persistent flow through the false lumen. The true lumen supplies theceliac, superior mesenteric, left renal, and inferior mesenteric arteries.Right renal artery supplied by the true and false lumen. No significantchange from prior. Symmetric nephrograms. CORONARY ARTERIES: Origins/course: Conventional origin and course of the coronary arteries. Dominance: Right Left Main Coronary: Widely patent without detectable plaque. Left Anterior Descending: Patent without detectable plaque or stenosis,including diagonal branches. Left Circumflex: Patent without detectable plaque or stenosis, includingobtuse marginal branches. Right Coronary Artery: Patent without detectable plaque or stenosis. Theposterior descending and posterolateral branches are patent. OTHER CARDIAC FINDINGS: Grossly normal cardiac chamber sizes. No regional wall motionabnormalities. No resting first-pass myocardial perfusion defects. No intra-cardiac mass or thrombus. Normal-appearing pericardium. ADDITIONAL FINDINGS: Central airways are clear. Similar mild stenosis of the left mainbronchus. Linear atelectasis versus scarring in the right middle, and leftlower lobes. Negative for pleural effusion or pneumothorax. No focalconsolidations. No thoracic adenopathy. Postsurgical changes of exploratory laparotomy with ileocecal resectionfor history of perforated appendicitis. Decreased mesenteric edema aboutthe anastomosis. Persistent, but slightly decreased colonic wallthickening near the anastomosis. Similar to slightly increased diffuse colonic thickening throughout the transversecolon and descending colon with some foci of intramural fatty deposition.Normal caliber colon and small bowel. Hypoattenuating lesion in theposterior right hepatic lobe (3/51) measuring approximately 2.5 x 2.6 cm. The well-defined fluid containingportion is decreased in conspicuity since March 02, 2024.Cholecystectomy. Spleen, adrenals, and pancreas are normal. Postoperative changes of abdominal wall irrigation performed February. The previously described fluid collection along the midline anteriorabdominal wall has resolved with a persistent midline abdominal walldefect. Surrounding subcutaneous edema with no organized fluid collection. No lymphadenopathy. No acute or suspicious bony lesions. CAD-RADS CATEGORIES: (based on most severe single lesion) 0: 0%, No stenosis 1: 1-24%, Minimal stenosis 2: 25-49%, Mild stenosis 3: 50-69%, Moderate stenosis 4A: 70-99% single or 2 vessel involvement, Severe stenosis 4B: LM > 50% or 3 vessel >/= 70%, Severe stenosis 5: 100%, Occluded Modifiers: N: Non-diagnostic segment(s) S: Stent G: Graft V: Vulnerable plaque IMPRESSION: 1. Negative for acute pulmonary embolism. 2. Type B aortic dissection is slightly increased in diameter in somelocations when compared to prior examination, however is not significantlychanged. For example at the abdominal hiatus it currently measures 3.6 cmcompared to 3.3 cm on December 10, 2023. Persistent blood flow into the false lumen as described above. 3. No significant coronary artery atherosclerosis or stenosis. CAD-RADScategory 0. 4. Persistent hypoattenuating right hepatic lobe lesion is most consistentwith developing abscess given the clinical history of perforatedappendicitis. The discrete fluid attenuation collection is howeverdecreased in conspicuity since March 02, 2024. 5. Interval postsurgical changes following abdominal wall irrigation anddebridement with no residual organized abdominal wall collections. 6. Inflammatory changes about the right lower quadrant anastomosis aredecreased from prior. Mary Soto APRN, C.N.P. IMG CT PROCEDURES Final Result * Troponin T, Baseline with 2 Hour/6 Hour Reflex Biomarker Panel (03/18/2024 1:40 PM CDT) Troponin T, Baseline, 5th gen <6 <=10 ng/L 03/18/2024 2:14 PM CDT [facility] Blood (Blood, Venous) 03/18/2024 1:40 PM CDT 03/18/2024 1:46 PM CDT Mary Soto APRN C.N.P. LAB BLOOD TROPONI N Final Result Performing Organization Address City/[facility] Co de Phone Number [facility] [address] [place], [place] [id number] [place] [id number] * (ABNORMAL) NT-Pro B-Type Natriuretic Peptide (BNP) (03/18/2024 1:40 PM CDT) NT-Pro BNP 165(H) <160 pg/mL 03/18/2024 2:14 PM CDT [facility] Comment: NT-proBNP values less than 300 pg/mL have a 99% negative predictive value for excluding acute congestive heart failure. A cutoff of 1200 pg/mL for patients with an eGFR<60 yields a diagnostic sensitivity and specificity of 89% and 72% for acute congestive heart failure. NT-proBNP values greater than 450 pg/mL are consistent with CHF in adults under 50 years of age. Blood (Blood, Venous) 03/18/2024 1:40 PM CDT 03/18/2024 1:46 PM CDT Paula Jimenez APRN.N.P. LAB BLOOD ADD-ON Final Result Performing Organization Address [facility] Co de Phone Number [facility] [address] [place], [place] [id number] [place] [address] [address] [place] [address] * Prothrombin Time (PT) (03/18/2024 1:40 PM CDT) Prothrombin Time, P 10.8 9.4 - 12.5 sec 03/18/2024 1:54 PM CDT [facility] INR 1.0 0.9 - 1.1 03/18/2024 1:54 PM CDT [facility] Comment: ----ADDITIONAL INFORMATION---- Standard intensity warfarin therapeutic range: 2.0 to 3.0 High intensity warfarin therapeutic range: 2.5 to 3.5 Blood (Blood, Venous) 03/18/2024 1:40 PM CDT 03/18/2024 1:46 PM CDT Mary Soto APRN, C.N.P. LAB BLOOD ADD-ON Final Result Performing Organization Address [facility] de Phone Number [facility] [address] [place], [place] [address] STMA [facility] [address] [place] [address] * Type and Screen (with Reflex Antibody ID) (03/18/2024 1:40 PM CDT) [facility] ABORh A Pos Not applicable 03/18/2024 2:13 PM CDT [facility] Antibody Screen Negative Negative 03/18/2024 2:21 PM CDT [facility] Type & Screen Expiration 03/21/2024 23:59 03/18/2024 2:13 PM CDT [facility] Testing Location [place] DEFAULT 03/18/2024 1:47 PM CDT [facility] Blood (Blood, Venous) 03/18/2024 1:40 PM CDT 03/18/2024 1:47 PM CDT Mary Soto APRN, C.N.P. LAB BLOOD BANK TE ST ORDERABLES Final Result Performing Organization Address [facility] de Phone Number [facility] [address] [place] [address], [facility] STRM [facility] [address] [place] [address] * (ABNORMAL) Basic Metabolic Panel (03/18/2024 1:40 PM CDT) [facility] Potassium, P 3.6 3.6 - 5.2 mmol/L 03/18/2024 2:03 PM CDT [facility] Sodium, P 140 135 - 145 mmol/L 03/18/2024 2:03 PM CDT [facility] Chloride, P 102 98 - 107 mmol/L 03/18/2024 2:03 PM CDT [facility] Bicarbonate, P 26 22 - 29 mmol/L 03/18/2024 2:03 PM CDT [facility] Anion Gap, P 12 7 - 15 03/18/2024 2:03 PM CDT [facility] BUN (Blood Urea Nitrogen), P 6 6 - 21 mg/dL 03/18/2024 2:03 PM CDT [facility] Creatinine 0.56(L) 0.59 - 1.04 mg/dL 03/18/2024 2:03 PM CDT [facility] Estimated GFR (eGFR) >90 >=60 mL/min/BSA 03/18/2024 2:03 PM CDT [facility] Comment: Estimated GFR calculated using the 2020 CKD_EPI creatinine equation. Calcium, Total, P 10.1(H) 8.6 - 10.0 mg/dL 03/18/2024 2:03 PM CDT [facility] Glucose, P 108 70 - 140 mg/dL 03/18/2024 2:03 PM CDT [facility] Blood (Blood, Venous) 03/18/2024 1:40 PM CDT 03/18/2024 1:46 PM CDT Mary Soto APRN, C.N.P. LAB BLOOD ADD-ON Final Result [facility] [address] [place] [address], [facility] [address] [place] [address] * Lipid Panel (11/13/2022 8:21 AM CDT) Triglycerides 124 mg/dL 11/13/2022 12:32 PM CDT [facility] Comment: ----REFERENCE VALUE---- Normal: <150 mg/dL Borderline High: 150-199 mg/dL High: 200-499 mg/dL Very High: > or =500 mg/dL Cholesterol, Total 195 mg/dL 2022 12:32 PM CDT [facility] Comment: ----REFERENCE VALUE---- Desirable: < 200 mg/dL Borderline High: 200 - 239 mg/dL High: > or = 240 mg/dL Cholesterol, LDL, Calculated 108 mg/dL 11/13/2022 12:32 PM CDT [facility] Comment: ----REFERENCE VALUE---- Desirable: <100 mg/dL Above Desirable: 100-129 mg/dL Borderline High: 130-159 mg/dL High: 160-189 mg/dL Very High: >=190 mg/dL ----ADDITIONAL INFORMATION---- LDL cholesterol calculated using the Krueger/NIH equation. Cholesterol, HDL 65 >=50 mg/dL 11/14/19 12:32 PM CDT [facility] Cholesterol, Non-HDL, Calculated 130 mg/dL 11/13/2022 12:32 PM CDT [facility] Comment: ----REFERENCE VALUE---- Desirable: <130 mg/dL Above Desirable: 130-159 mg/dL Borderline High: 160-189 mg/dL High: 190-219 mg/dL Very High: > or =220 mg/dL Fasting (8 HR or more) Yes 11/13/2022 11:50 AM CDT [facility] Blood (Blood, Venous) 11/13/2022 8:21 AM CDT 11/13/2022 11:50 AM CDT Ye Banuelos M.D. LAB BLOOD ADD-O N Final Result [facility] [address] [place] [address], [facility] [place] [address], [place] [address] * HPV with Genotyping, PCR, ThinPrep (03/19/2021 5:07 PM CDT) HPV with Genotyping, ThinPrep, PCR Negative Negative 03/21/2021 8:00 PM CDT [facility] Comment: Negative for high risk HPV by nucleic acid amplification. The following high risk HPV types were not detected: 16, 18, 31, 33, 35, 39, 45, 51, 52, 56, 58, 59, 66, and 68 Varies 03/19/2021 5:07 PM CDT 03/21/2021 6:38 AM CDT us Anthony Foss Jr., M.D. LAB MICROBIOLOGY - GEN ERAL ORDERABLES Final Result Performing Organization Address City/[facility]/ZIP Co de Phone Number [facility] [address] [place] [address], [facility] [place] [address] [place] [address] * HXZZORDERS (05/27/2012 9:39 AM [facility] UP) HIV-1/-2 Antibody Negative Negative [facility] Comment: Negative result does not rule out HIV infection. If acute HIV-1 infection is suspected in a high-risk patient, submit plasma specimen for HIV-1 RNA quantification test. If this test is ordered as a follow-up test to a reactive rapid HIV antibody test result, supplemental testing by Western blot is recommended, even when this test result is negative. Testing is performed using the [employer] Anti-HIV 1+2 chemiluminescence immunoassay. Test Performed by: [place] [address] Facing End Trimmer: Zen Reddy III, M.D. Blood 05/27/2012 9:39 AM [facility] UP us Anthony Foss Jr., M.D. LAB HISTORICAL ORDERS Final Result Performing Organization Address City/[facility] Co de Phone Number POWERCHART from Last 3 Months or Most Recently Relevant to Health Maintenance Insurance [employer] [address] [place] [phone] Advance Directives For more information, please contact: [phone] * Full Code (Latest Code Status on File) Date Activated Date Inactivated Comments 03/18/2024 7:17 PM 03/19/2024 5:27 PM Question Answer Comments Full Code: Discussed * Full Code Date Activated Date Inactivated Comments 03/02/2024 8:47 PM 03/06/2024 3:46 PM Question Answer Comments Full Code: Not Discussed Due to: Not medically appropriate * Full Code Date Activated Date Inactivated Comments 03/02/2024 4:35 PM 03/02/2024 8:47 PM Question Answer Comments Full Code: Not Discussed Due to: Not medically appropriate * Full Code Date Activated Date Inactivated Comments 04/12/2023 6:16 AM 04/12/2023 7:10 PM Question Answer Comments Full Code: Discussed * Full Code Date Activated Date Inactivated Comments 08/21/2018 3:17 AM 08/28/2018 4:44 PM Question Answer Comments Full Code: Discussed 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 [address] [place] [address] [place] [id number] PCP - General Family Medicine 03/28/18
--- OUTSIDE RECORDS SUMMARY | 2024-06-17 21:56 | XMS_ITS | Clinical Summary ---
Author Organization [facility] Address [place], [place] [address] Care Team Providers Care Flow Worker Name Role Phone Ye Zuniga Primary Care Provider Allergies Active Allergy Reactions Criticality Noted Date Comments Morphine Vomiting 03/02/2024 vomiting Unlisted Allergen (Include Detail In Comments) *Unknown 11/04/2022 Fluoroquinolone - Type B AAA Quinolones Other - Describe In Comment Field,*Unknown 11/04/2022 Fluoroquinolone - Type B AAA Metoclopramide Anxiety 11/23/2019 Medications dextroamphetamine-a mphetamine (ADDERALL XR) 20 mg Extended-Release capsule Take 20 mg by mouth once daily. 023 Active cholecalciferol (VITAMIN D3) 1,000 unit tabletIndications:V itamin D deficiency Take 1 Tablet (1,000 units) by mouth once daily. 30 Tablet 023 Active traZODone (DESYREL) 100 mg tablet Take 100 mg by mouth at bedtime if needed. 023 Active omeprazole (PRILOSEC) 20 mg Delayed-Release capsuleIndications: Gastroesophageal reflux disease, unspecified whether esophagitis present Take 1 Capsule (20 mg) by mouth once daily before a meal. 90 Capsule 3 3 2:40 PM CDT 023 Active carvediloL (COREG) 25 mg tabletIndications:A ortic dissection, thoracoabdominal (HC) Take 1 Tablet (25 mg) by mouth two times daily with meals. 180 Tablet 3 023 Active SUMAtriptan (IMITREX) 50 mg tablet Take 50 mg by mouth once daily if needed for Migraine. Give at minimum 2hrs apart. Max Dose: 200mg per 24hrs. Active amLODIPine (NORVASC) 5 mg tabletIndications:H TN (hypertension) Take 1 Tablet (5 mg) by mouth once daily. 30 Tablet 5 023 Active olmesartan (BENICAR) 40 mg tabletIndications:E ssential hypertension Take 1 Tablet (40 mg) by mouth once daily. 90 Tablet 3 023 Active FLUoxetine (PROZAC) 20 mg capsule Take 20 mg by mouth every morning. Active methocarbamoL (ROBAXIN) 750 mg tablet Take 750 mg by mouth every 8 hours if needed for Muscle Spasm. Active spironolactone (ALDACTONE) 100 mg tablet Take 100 mg by mouth once daily in the morning. 023 Active sennosides-docusate (SENOKOT S) (8.6-50 mg) tablet Take 1-2 Tablets by mouth once daily if needed for Constipation. Active albuterol HFA (PRO-AIR; VENTOLIN; PROVENTIL) 90 mcg/actuation inhalerIndications: Influenza A Inhale 2 Puffs by mouth 4 times daily if needed for Shortness Of Breath or Wheezing. 8.5 g 4 12:41 PM [facility] 024 Active ondansetron (ZOFRAN ODT) 4 mg disintegrating tabletIndications:N ausea and vomiting, unspecified vomiting type Place 1 Tablet (4 mg) on the tongue every 8 hours if needed for Nausea/Vomiting . 30 Tablet 024 Active Zepbound 2.5 mg/0.5 mL pen Inject 2.5 mg subcutaneous once weekly. Active oxyCODONE 10 mg tablet Take 10 mg by mouth three times daily. Active loratadine (CLARITIN) 10 mg tablet Take 10 mg by mouth once daily if needed for Allergy Symptoms. Active diphenhydrAMINE (BENADRYL) 25 mg tablet Take 25-50 mg by mouth 2 times daily if needed (Allergy symptoms). Active OLANzapine (ZYPREXA ZYDIS) 5 mg disintegrating tabletIndications:N ausea and vomiting, unspecified vomiting type Place 1 Tablet (5 mg) on the tongue every 8 hours if needed (Nausea and vomiting) for up to 20 doses. 20 Tablet 024 Active ondansetron (ZOFRAN ODT) 4 mg disintegrating tabletIndications:N ausea and vomiting, unspecified vomiting type Place 1 Tablet (4 mg) on the tongue every 8 hours if needed for Nausea/Vomiting . 10 Tablet 024 Active ondansetron (ZOFRAN ODT) 4 mg disintegrating tabletIndications:V omiting, unspecified vomiting type, unspecified whether nausea present Place 1 Tablet (4 mg) on the tongue every 6 hours if needed for Nausea/Vomiting . 15 Tablet 025 Active prochlorperazine (COMPAZINE) 10 mg tabletIndications:V omiting, unspecified vomiting type, unspecified whether nausea present Take 1 Tablet (10 mg) by mouth every 8 hours if needed for Nausea/Vomiting . 10 Tablet 025 Active prochlorperazine (COMPAZINE) 25 mg suppositoryIndicati ons:Vomiting, unspecified vomiting type, unspecified whether nausea present Insert 1 Suppository (25 mg) rectally every 12 hours if needed for Nausea/Vomiting (severe nausea and vomiting). 6 Suppository 025 Active Active Problems Problem Noted Date Diagnosed Date Influenza A 08/08/2023 Multifocal pneumonia 08/08/2023 Rising PSA following treatme nt for malignant neoplasm of prostate 02/24/2023 Secondary malignant neoplasm of lymph nodes 02/06 History of nephrolithiasis 12/23/2022 Hyponatremia 12/23/2022 Low back pain 12/23/2022 Nausea and vomiting 12/23/2022 Constipation 12/23/2022 Obesity 12/23/2022 Chronic bilateral low back pain without sciatica 12/22/2022 Abdominal pain 11/24/2022 Elevated liver enzymes 11/24/2022 Shock liver 10/05/2022 Chronic pain syndrome 09/25/2022 Resistant hypertension 09/25/2022 Chronic pain syndrome 09/25/2022 Aortic dissection, thoracoabdominal 09/14/2022 History of falling 01/26/2020 11/09/2022 Fracture of multiple ribs 05/19/2019 Non-pressure chronic ulcer o f skin of other sites limited to breakdown of skin 12/16/2018 Pleural effusion 08/21/2018 Postoperative pain 08/21/2018 Essential hypertension 10/30/2016 Overview (11/23/2019): Overview: Hypertension (HTN) NOS Migraine without aura and wi thout status migrainosus, not intractable 03/12/2015 Cervicalgia 03/12/2015 Pain medication agreement 12/04/2014 Overview (12/04/2014): Migraine roxicodone 5 mg capsule for severe migraine. Has imitrex as first line. 15 capsules every 2-3 months. Encounter for other administrative examinations 12/04/2014 Overview (11/23/2019): Migraine roxicodone 5 mg capsule for severe migraine. Has imitrex as first line. 15 capsules every 2-3 months. Kidney stones 12/01/2013 Depression with anxiety 09/18/2011 Unspecified hypothyroidism 09/01/2011 Polycystic ovary syndrome 03/16/2011 Lumbosacral spondylosis without myelopathy 10/20 Whiplash injury to neck 07/28/2010 Sprain of back 07/28/2010 Allergic rhinitis, cause unspecified 09/19/2007 Pectus excavatum 03/31/2007 Obesity, unspecified 03/31/2007 Encounters Date Type Department Care Team Description 06/12/2024 3:04 PM [facility] - 06/12/2024 5:[address] [address] Tracey Nichols MD Vomiting, unspecified vomiting type, unspecified whether nausea present (Primary Dx) Discharge Disposition: Home Self Care 06/12/2024 Travel 04/19/2024 11:12 AM [facility] - 04/19/2024 1:09 PM Located within [facility] [address] [place] [address] Edgar Higginbotham PA Postoperative wound cellulitis (Primary Dx) Discharge Disposition: Home Self Care 04/19/2024 Travel 03/28/2024 1:22 PM CDT - 03/28/2024 5:18 PM T Emergency [place] [id number] [place] [id number] Hua Gold MD Abdominal pain, unspecified abdominal location (Primary Dx); Nausea and vomiting, unspecified vomiting type; Bloody diarrhea Discharge Disposition: Home Self Care 03/28/2024 Travel 03/26/2024 1:36 PM CDT - 03/26/2024 5:40 PM CDT Emergency [address] [address] Yomi De La Cruz MD Nausea and vomiting, unspecified vomiting type (Primary Dx); HTN (hypertension) Discharge Disposition: Home Self Care 03/26/2024 Travel from Last 3 Months Immunizations Name Administration Dates Next Due Hepatitis B (Adult) 04/21/2005,10/24/2004,2004 Influenza, High-dose Inactivated 06/10/2012 Influenza, IIV3 (Age >=3 years) 02/14/2011,02/21 MMR 09/30/1999,11/11/1988 Td (Age >=7 Years) 09/30/1999 Tdap 07/07/2010 Family History Medical History Relation Name Comments Aortic dissection Brother Cancer Father throat Stroke Maternal Aunt aneurysm Hypertension Maternal Grandfather Stroke Maternal Grandmother aneurys m Cancer Paternal Grandmother breast Cancer Paternal Uncle 1 brain Cancer Paternal Uncle 2 Relation Name Status Comments Brother Alive x1 Father Maternal Aunt Maternal Grandfather Alive Maternal Grandmother Alive Mother Alive Paternal Grandfather Paternal Grandmother Alive Paternal Uncle 1 Paternal Uncle 2 Social History Tobacco Use Types Packs/Day Years Used Date Smoking Tobacco: Never Passive Smoke Exposure: Never Smokeless Tobacco: Never Tobacco Cessation:Counseling Given: Not Answered Comments:no exposure Alcohol Use Standard Drinks/Week Comments Yes 0 (1 standard drink = 0.6 oz pur e alcohol) social AHC Utilities Answer Date Recorded Do you have trouble paying f or utilities (for example, heat, electricity, water, phone)? Yes 08/08/2023 PHQ-2 Answer Date Recorded PHQ-2 TOTAL SCORE 0 03/26/2023 Social Connections Answer Date Recorded Do you often feel lonely or isolated from those around you? 0 08/08/2023 Financial Resource Strain Answer Date R ecorded Difficulty of Paying Living Expenses 3 12/18/2022 Difficulty of Paying Living Expenses Not on file 12/18/2022 Food Insecurity Answer Date Recorded Do you worry your food will run out before you are able to buy more? 1 08/08/2023 Transportation Needs Answer Date Record ed Does lack of transportation keep you from medica l appointments? 1 08/08/2023 Does lack of transportation keep you from work, meetings or getting things that you need? 1 08/08/2023 Housing Stability Answer Date Recorded What is your housing situation today? 1 08/08/2023 Interpersonal Safety Answer Date Record ed Are you being hit, kicked, p ushed or yelled at (see row info)? No 06/12/2024 Interpersonal Safety Abuse 12 - 18 Not on file 06/12/2024 Interpersonal Safety Ambulatory Vulnerability No t on file 06/12/2024 Comments No Sex and Gender Information Value Date Recorded Sex Assigned at Not on file Legal Sex Female 5:22 AM [facility] Gender Identity Not on file Sexual Orientation Not on file Occupation Industry Job Start Date Job End Date Not on file Not on file Not on file Not on file Obstetrics History Para Term AB IAB SAB Ectopic Multiple Livin g Live Births 2 1 1 1 Date Outcome GA Total Labor Labor/2nd/3rd Weight Sex Type Anes PTL Kailey A1 A5 Name Clin Comments:System Genera william. Please review and update details. Term Last Filed Vital Signs Vital Sign Reading Time Taken Comments Blood Pressure 127/77 06/12/2024 5:45 PM [facility] Pulse 75 06/12/2024 5:45 PM [facility] Temperature 37 C (98.6 F) 06/12/2024 2:57 PM [facility] Respiratory Rate 16 06/12/2024 5:45 PM [facility] Oxygen Saturation 95% 06/12/2024 5:45 PM [facility] Inhaled Oxygen Concentration - - Weight 112 kg (247 lb) 06/12/2024 2:57 PM [facility] Height 180.3 cm (5' 11) 06/12/2024 2:57 PM [facility] Body Mass Index 34.45 06/12/2024 2:57 PM [facility] Plan of Treatment Health Maintenance Due Date Last Done Comments HIV for age 15-65 2002 Hepatitis C screening for age 18-79 2005 Pap test for age 21-65 01/01/2018 01/01/2015, 2005 Tetanus booster 07/07/2020 07/07/2010, 09/30/1999 Depression screening for age 12+ 10/24/2023 10/23/2022, 10/20/2022, 02/27/2016, Additional history exists COVID-19 vaccine series ( season) 2024 Influenza for age 9-49 02/06/2024 02/14/2011, 2009 BMI (ht and wt on same day) for age 18+ 03/23/2024 03/23/2023, 02/11/2023, 12/09/2022, Additional history exists Tdap Completed 07/07/2010 Pneumococcal series for age 6-49 Aged Out No longer eligible based on patient's age to complete this topic Medical Devices Implanted Type Area Triple Drum Operator Device Identifier Shelf Expiration Date Model / Serial / Lot Stent Contour [id number] Uret - [id number] Implanted:Qty: 1 on 11/07/2013 by Keith Jackson MD at [facility] Left: [facility]reter [facility] 07/08/2016 [id number]# / / [id number] Stent Contour [id number] Uret - [id number] Implanted:Qty: 1 on 12/05/2013 by Keith Jackson MD at [facility] Right: [facility]reter [facility] 08/05/2016 [id number]# / / [id number] Procedures Procedure Name Priority Date/Time Associated Diagnosis Comments CTA CHEST ABDOMEN PELVIS AORTIC DISSECTION W STAT 06/12/2024 3:54 PM [facility] LIPASE STAT 06/12/2024 3:26 PM [facility] BASIC METABOLIC PANEL STAT 06/12/2024 3:26 PM [facility] HEPATIC FUNCTION PANEL STAT 06/12/2024 3:26 PM [facility] CBC W PLT NO DIFF STAT 06/12/2024 3:2 6 PM [facility] BASIC METABOLIC PANEL STAT 04/19/2024 12:23 PM [facility] CBC W PLT NO DIFF STAT 04/19/2024 12: 23 PM [facility]ER ,SERUM QUALITATIVE STAT 04/19/2024 12:22 PM [facility]ER CTA CHEST ABDOMEN PELVIS AORTIC DISSECTION W STAT 03/28/2024 3:[address] ABDOMEN PELVIS W STAT 03/28/2024 3 :02 PM CDT LIPASE STAT 03/28/2024 1:43 PM CDT COMP METABOLIC PANEL STAT 03/28/2024 1:43 PM CDT CBC W PLT NO DIFF STAT 03/28/2024 1:4 3 PM CDT CBC WITH AUTO DIFFERENTIAL STAT 03/26/2024 2:10 PM CDT C-REACTIVE PROTEIN STAT 03/26/2024 2: 10 PM CDT CBC WITH AUTO DIFFERENTIAL STAT 03/26/2024 2:10 PM CDT LIPASE STAT 03/26/2024 2:10 PM CDT COMP METABOLIC PANEL STAT 03/26/2024 2:10 PM CDT 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 Anatomical Region Laterality Modality CHEST, Abdomen, Pelvis, AORTA, THORAX, HEART Computed Tomography 06/12/2024 4:40 PM [facility]ER [facility]ER Narrative 06/12/2024 4:40 PM [facility]ER For Patients: As a result of the 21st Century Cures Act, medical imaging exams and procedure reports are released immediately into your electronic medical record. You may view this report before your referring provider. If you have questions, please contact your health care provider. Indication: monitor aortic aneurysm, worsening abdominal pain, prior gallbladder and appendix surgery with partial colectomy for rupture Technique: Noncontrast helical CT images were obtained of the chest, abdomen, and pelvis. During an arterial phase, helical CT images were obtained of the chest, abdomen, and pelvis after the administration of 100 mL of Omnipaque 350 intravenous contrast. 3-D maximum intensity projection images in the sagittal and coronal planes were available for review. Please note that all CT scans at this facility use dose modulation, iterative reconstruction, and/or weight-based dosing when appropriate to reduce radiation dose to as low as reasonably achievable. Comparison: 02/04/2024, 02/01/2024 Findings: CARDIOVASCULAR: Diagnostic quality: Contrast opacification of the aorta is adequate for assessment of aortic injury. Study is not significantly limited by respiratory motion artifact. Heart: Normal in size. No significant coronary artery calcification. No significant valvular calcification. Pericardium: No pericardial effusion. Pulmonary arteries: Not enlarged. No obvious central filling defects on this non-dedicated study to suggest pulmonary embolism. Thoracic aorta: Redemonstration of dilated descending thoracic aorta measuring up to 3.8 centimeter with associated dissection flap. Normal cervical branching. Abdominal aorta: Aortic dissection extending into the left common iliac artery. Celiac trunk: Supplied by the true lumen. Patent. No significant narrowing. Conventional hepatic arterial anatomy. SMA: Supplied by the true lumen. Patent. No significant narrowing. CORIE: Supplied by the true lumen. Patent. Renal arteries: Supplied by the true lumen. Single right and single left renal arteries. Patent. No significant narrowing. Iliac arteries: Patent. No significant narrowing. Supplied by the true lumen on the right. Supplied by the false lumen on the left. REMAINING CHEST: Evaluation of solid visceral organs is limited on unenhanced and arterial phase imaging of the chest. Medical devices: None. Thyroid: Normal. Lymph nodes: No supraclavicular, axillary, mediastinal, or hilar lymphadenopathy. Other mediastinal structures: No significant abnormality. Lung parenchyma: Mild bilateral linear atelectasis. Airways: No significant abnormality. Pleura: No significant abnormality. Chest wall: Chronic bilateral anterior chest wall rib deformities. Pectus excavatum deformity. REMAINING ABDOMEN AND PELVIS: Evaluation of solid visceral organs is limited on unenhanced and arterial phase imaging of the abdomen and pelvis. Liver and biliary tree: No significant abnormality. Gallbladder: Status post cholecystectomy. Spleen: No significant abnormality. Pancreas: No significant abnormality. Adrenal glands: No significant abnormality. Kidneys and ureters: No hydronephrosis. Nonobstructing bilateral renal calculi measuring up to 5 millimeter on the right (12/188) and 5 millimeter on the left (12/173). Gastrointestinal tract: Postsurgical changes from partial right colectomy. No evidence of bowel obstruction. Peritoneal cavity: No free fluid or free air. Pelvic organs: No obvious abnormality. Lymph nodes: No lymphadenopathy. Abdominal wall: Postsurgical changes are seen in the lower anterior abdominal wall. Musculoskeletal: No significant abnormality. Impression: 1. Redemonstration of type B aortic dissection involving the descending thoracic aorta and abdominal aorta extending into the left common iliac artery. No evidence of rupture or periaortic hematoma. 2. Chronic anterior rib deformities with pectus excavatum deformity. 3. Nonobstructing bilateral renal calculi measuring up to 5 millimeter without hydronephrosis. 4. Postsurgical changes from partial right colectomy. No evidence of bowel obstruction. Please note that all CT scans at this facility use dose modulation, iterative reconstruction, and/or weight-based dosing when appropriate to reduce radiation dose to as low as reasonably achievable. Dictated by Keith Galicia MD @ 06/12/2024 4:40:41 PM (Electronically Signed) Procedure Note Kee Galicia MD - 06/12/2024 For Patients: As a result of the 21st Century Cures Act, medical imagingexams and procedure reports are released immediately into your electronicmedical record. You may view this report before your referring provider.If you have questions, please contact your health care provider. Indication: monitor aortic aneurysm, worsening abdominal pain, prior gallbladder andappendix surgery with partial colectomy for rupture Technique: Noncontrast helical CT images were obtained of the chest, abdomen, andpelvis. During an arterial phase, helical CT images were obtained of the chest,abdomen, and pelvis after the administration of 100 mL of Omnipaque 350intravenous contrast. 3-D maximum intensity projection images in the sagittal and coronal planeswere available for review. Please note that all CT scans at this facility use dose modulation,iterative reconstruction, and/or weight-based dosing when appropriate toreduce radiation dose to as low as reasonably achievable. Comparison: 02/04/2024, 02/01/2024 Findings: CARDIOVASCULAR: Diagnostic quality: Contrast opacification of the aorta is adequate forassessment of aortic injury. Study is not significantly limited byrespiratory motion artifact. Heart: Normal in size. No significant coronary artery calcification. Nosignificant valvular calcification. Pericardium: No pericardial effusion. Pulmonary arteries: Not enlarged. No obvious central filling defects onthis non-dedicated study to suggest pulmonary embolism. Thoracic aorta: Redemonstration of dilated descending thoracic aortameasuring up to 3.8 centimeter with associated dissection flap. Normalcervical branching. Abdominal aorta: Aortic dissection extending into the left common iliacartery. Celiac trunk: Supplied by the true lumen. Patent. No significantnarrowing. Conventional hepatic arterial anatomy. SMA: Supplied by the true lumen. Patent. No significant narrowing. CORIE: Supplied by the true lumen. Patent. Renal arteries: Supplied by the true lumen. Single right and single leftrenal arteries. Patent. No significant narrowing. Iliac arteries: Patent. No significant narrowing. Supplied by the truelumen on the right. Supplied by the false lumen on the left. REMAINING CHEST: Evaluation of solid visceral organs is limited on unenhanced and arterialphase imaging of the chest. Medical devices: None. Thyroid: Normal. Lymph nodes: No supraclavicular, axillary, mediastinal, or hilarlymphadenopathy. Other mediastinal structures: No significant abnormality. Lung parenchyma: Mild bilateral linear atelectasis. Airways: No significant abnormality. Pleura: No significant abnormality. Chest wall: Chronic bilateral anterior chest wall rib deformities. Pectusexcavatum deformity. REMAINING ABDOMEN AND PELVIS: Evaluation of solid visceral organs is limited on unenhanced and arterialphase imaging of the abdomen and pelvis. Liver and biliary tree: No significant abnormality. Gallbladder: Status post cholecystectomy. Spleen: No significant abnormality. Pancreas: No significant abnormality. Adrenal glands: No significant abnormality. Kidneys and ureters: No hydronephrosis. Nonobstructing bilateral renalcalculi measuring up to 5 millimeter on the right (12/188) and 5millimeter on the left (12/173). Gastrointestinal tract: Postsurgical changes from partial right colectomy.No evidence of bowel obstruction. Peritoneal cavity: No free fluid or free air. Pelvic organs: No obvious abnormality. Lymph nodes: No lymphadenopathy. Abdominal wall: Postsurgical changes are seen in the lower anteriorabdominal wall. Musculoskeletal: No significant abnormality. Impression: 1. Redemonstration of type B aortic dissection involving the descendingthoracic aorta and abdominal aorta extending into the left common iliacartery. No evidence of rupture or periaortic hematoma. 2. Chronic anterior rib deformities with pectus excavatum deformity. 3. Nonobstructing bilateral renal calculi measuring up to 5 millimeterwithout hydronephrosis. 4. Postsurgical changes from partial right colectomy. No evidence of bowelobstruction. Please note that all CT scans at this facility use dose modulation,iterative reconstruction, and/or weight-based dosing when appropriate toreduce radiation dose to as low as reasonably achievable. Dictated by Keith Galicia MD @ 06/12/2024 4:40:41 PM (Electronically Signed) Tracey Nichols MD CT Final Result * (ABNORMAL) CBC W PLT NO DIFF (06/12/2024 3:26 PM [facility]ER) Only the most recent of3 resultswithin the time period is included. WHITE BLOOD COUNT 9.9 4.5 - 11.0 thou/cu mm 06/12/2024 3:[address] [facility] RED BLOOD COUNT 4.78 4.00 - 5.20 mil/cu mm 06/12/2024 3:[address] [facility] HEMOGLOBIN 13.1 12.0 - 16.0 g/dL 06/12/2024 3:[address] [facility] HEMATOCRIT 41.2 33.0 - 51.0 % 06/12/2024 3:[address] [facility] MCV 86 80 - 100 fL 06/12/2024 3:[address] [facility] MCH 27.4 26.0 - 34.0 pg 06/12/2024 3:[address] [facility] MCHC 31.8(L) 32.0 - 36.0 g/dL 06/12/2024 3:[address] [facility] RDW 13.8 11.5 - 15.5 % 06/12/2024 3:[address] [facility] PLATELET COUNT 313 140 - 440 thou/cu mm 06/12/2024 3:[address] [facility] MPV 8.7 6.5 - 11.0 fL 06/12/2024 3:[address] [facility] Blood BLOOD SPECIMEN / Unknown Venipuncture / Unknown 06/12/2024 3:26 PM [facility] 06/12/2024 3:31 PM [facility]ER Tracey Nichols MD HEMATOLOGY Final Result Performing Organization Address [facility]/ZIP Co de Phone Number [facility] [address] [place] [address] * LIPASE (06/12/2024 3:26 PM FEATHER STITCHER) Only the most recent of3 resultswithin the time period is included. LIPASE 24.2 13.0 - 60.0 IU/L 06/12/2024 3:[address] [facility] Blood BLOOD SPECIMEN / Unknown Venipuncture / Unknown 06/12/2024 3:26 PM [facility]ER 06/12/2024 3:31 PM [facility]ER us Tracey Nichols MD CHEMISTRY Final Result Performing Organization Address [facility] Co de Phone Number [facility] [address] [place] [address] * (ABNORMAL) HEPATIC FUNCTION PANEL (06/12/2024 3:26 PM FEATHER STITCHER) ALBUMIN 4.8 4.0 - 4.9 g/dL 06/12/2024 3:[address] [facility] PROTEIN,TOTAL 8.3(H) 6.0 - 8.0 g/dL 06/12/2024 3:[address] [facility] BILIRUBIN,TOTAL 0.4 0.0 - 1.2 mg/dL 06/12/2024 3:[address] [facility] BILIRUBIN,DIRECT 0.2 0.0 - 0.2 mg/dL 06/12/2024 3:[address] [facility] BILIRUBIN,INDIRE CT 0.2 0.2 - 0.8 mg/dL 06/12/2024 3:[address] [facility] ALK PHOSPHATASE 124(H) 35 - 104 IU/L 06/12/2024 3:[address] [facility] ALT (SGPT) 9(L) 10 - 35 IU/L 06/12/2024 3:[address] [facility] AST (SGOT) 30 10 - 35 IU/L 06/12/2024 3:[address] [facility] Blood BLOOD SPECIMEN / Unknown Venipuncture / Unknown 06/12/2024 3:26 PM FEATHER STITCHER 06/12/2024 3:31 PM FE[facility]ER STITCHER Tracey Nichols MD CHEMISTRY Final Result [facility] [address] [place] [address] * (ABNORMAL) BASIC METABOLIC PANEL (06/12/2024 3:26 PM [facility]) Only the most recent of2 resultswithin the time period is included. SODIUM 139 136 - 145 mmol/L 06/12/2024 3:[address] [facility] POTASSIUM 3.0(L) 3.5 - 5.1 mmol/L 06/12/2024 3:[address] [facility] CHLORIDE 98 98 - 107 mmol/L 06/12/2024 3:[address] [facility] CO2,TOTAL 29 22 - 29 mmol/L 06/12/2024 3:[address] [facility] ANION GAP 12 5 - 18 06/12/2024 3:[address] [facility] GLUCOSE 99 70 - 99 mg/dL 06/12/2024 3:[address] [facility] CALCIUM 10.2 8.8 - 10.4 mg/dL 06/12/2024 3:[address] [facility] Comment: Reference ranges for this test were updated on 04/11/2024 to reflect our healthy population more accurately. Reference range changes are not retroactively applied to results, but previous results using the same methodology can be interpreted in the context of the new reference range. BUN 14 6 - 20 mg/dL 06/12/2024 3:[address] [facility] CREATININE 0.75 0.50 - 0.90 mg/dL 06/12/2024 3:[address] [facility] BUN/CREAT RATIO 19 10 - 20 3:[address] [facility] eGFR >90 >90 mL/min/1. 73m2 06/12/2024 3:[address] [facility] Comment:As of 2021, eG FR is calculated by the CKD-EPI creatinine equation without race adjustment. eGFR can be influenced by muscle mass, exercise, and diet. The reported eGFR is an estimation only and is only applicable if the renal function is stable. Blood BLOOD SPECIMEN / Unknown Venipuncture / Unknown 06/12/2024 3:26 PM FEATHER STITCHER 06/12/2024 3:31 PM FEATHER STITCHER us Tracey Nichols MD CHEMISTRY Final Result Performing Organization Address City/[facility]/ZIP Co de Phone Number [facility] [address] [place] [address] * ,SERUM (04/19/2024 12:22 PM FEATHER STITCHER) ,SERU M Negative Negative 04/19/2024 12:40 PM FEATHER STITCHER [facility] Blood BLOOD SPECIMEN / Unknown Venipuncture / Unknown 04/19/2024 12:22 PM FEATHER STITCHER 04/19/2024 12:34 PM FEATHER STITCHER us Edgar HUNT CHEMISTRY Final Result Performing Organization Address City/[facility]/ZIP Co de Phone Number [facility] [address] [phone] * CT ABD/PELVIS W IV CONTRAST (03/28/2024 3:02 PM CDT) Anatomical Region Laterality Modality Abdomen, Pelvis, AORTA, LIVER, SPLEEN Computed Tomography [facility] Kade Gold MD CT Final Result * (ABNORMAL) COMP METABOLIC PANEL (03/28/2024 1:43 PM CDT) Only the most recent of2 resultswithin the time period is included. SODIUM 134(L) 136 - 145 mmol/L 03/28/2024 2:08 PM [facility] POTASSIUM 3.6 3.5 - 5.1 mmol/L 03/28/2024 2:08 PM [facility] CHLORIDE 93(L) 98 - 107 mmol/L 03/28/2024 2:08 PM [facility] CO2,TOTAL 30(H) 22 - 29 mmol/L 03/28/2024 2:08 PM [facility] ANION GAP 11 5 - 18 03/28/2024 2:08 PM [facility] GLUCOSE 106(H) 70 - 99 mg/dL 03/28/2024 2:08 PM [facility] CALCIUM 9.9 8.6 - 10.0 mg/dL 03/28/2024 2:08 PM [facility] BUN 7 6 - 20 mg/dL 03/28/2024 2:08 PM [facility] CREATININE 0.63 0.50 - 0.90 mg/dL 03/28/2024 2:08 PM [facility] BUN/CREAT RATIO 11 10 - 20 2:08 PM [facility] eGFR >90 >90 mL/min/1.7 3m2 03/28/2024 2:08 PM [facility] Comment:As of 2021, eG FR is calculated by the CKD-EPI creatinine equation without race adjustment. eGFR can be influenced by muscle mass, exercise, and diet. The reported eGFR is an estimation only and is only applicable if the renal function is stable. ALBUMIN 4.5 4.0 - 4.9 g/dL 03/28/2024 2:08 PM [facility] PROTEIN,TOTAL 8.5(H) 6.0 - 8.0 g/dL 03/28/2024 2:08 PM [facility] BILIRUBIN,TOTAL 0.7 0.0 - 1.2 mg/dL 03/28/2024 2:08 PM [facility] ALK PHOSPHATASE 168(H) 35 - 104 IU/L 03/28/2024 2:08 PM [facility] ALT (SGPT) 48(H) 10 - 35 IU/L 03/28/2024 2:08 PM [facility] AST (SGOT) 120(H) 10 - 35 IU/L 03/28/2024 2:08 PM [facility] Blood BLOOD SPECIMEN / Unknown IV Start / Unknown 03/28/2024 1:43 PM CDT 03/28/2024 1:45 PM CDT us Hua Kade Gold MD CHEMISTRY Final Result [facility] [address] [phone] * (ABNORMAL) CBC WITH AUTO DIFFERENTIAL (03/26/2024 2:10 PM CDT) WHITE BLOOD COUNT 9.9 4.5 - 11.0 thou/cu mm 03/26/2024 2:17 PM [facility] RED BLOOD COUNT 4.36 4.00 - 5.20 mil/cu mm 03/26/2024 2:17 PM [facility] HEMOGLOBIN 12.0 12.0 - 16.0 g/dL 03/26/2024 2:17 PM [facility] HEMATOCRIT 38.4 33.0 - 51.0 % 03/26/2024 2:17 PM [facility] MCV 88 80 - 100 fL 03/26/2024 2:17 PM [facility] MCH 27.5 26.0 - 34.0 pg 03/26/2024 2:17 PM [facility] MCHC 31.3(L) 32.0 - 36.0 g/dL 03/26/2024 2:17 PM [facility] RDW 14.5 11.5 - 15.5 % 03/26/2024 2:17 PM [facility] PLATELET COUNT 434 140 - 440 thou/cu mm 03/26/2024 2:17 PM [facility] MPV 8.3 6.5 - 11.0 fL 03/26/2024 2:17 PM [facility] % NEUT 79.3 % 03/26/2024 2:17 PM [facility] % LYMPH 16.0 % 03/26/2024 2:17 PM [facility] % MONO 3.4 % 03/26/2024 2:17 PM [facility] % EOS 0.9 % 03/26/2024 2:17 PM [facility] % BASO 0.4 % 03/26/2024 2:17 PM [facility] ABSOLUTE NEUTROPHILS 7.8(H) 1.7 - 7.0 thou/cu mm 03/26/2024 2:17 PM [facility] ABSOLUTE LYMPHOCYTES 1.6 0.9 - 2.9 thou/cu mm 03/26/2024 2:17 PM [facility] ABSOLUTE MONOCYTES 0.3 <0.9 thou/cu mm 03/26/2024 2:17 PM [facility] ABSOLUTE EOSINOPHILS 0.1 <0.5 thou/cu mm 03/26/2024 2:17 PM [facility] ABSOLUTE BASOPHILS 0.0 <0.3 thou/cu mm 03/26/2024 2:17 PM [facility] Blood BLOOD SPECIMEN / Unknown IV Start / Unknown 03/26/2024 2:10 PM T 03/26/2024 2:13 PM [facility] us Yomi De La Cruz MD HEMATOLOGY Final R esult [facility] [address] [phone] * (ABNORMAL) C-REACTIVE PROTEIN (03/26/2024 2:10 PM CDT) C-REACTIVE PROTEIN 1.5(H) <0.5 mg/dL 03/26/2024 2:35 PM CDT [facility] Blood BLOOD SPECIMEN / Unknown IV Start / Unknown 03/26/2024 2:10 PM CDT 03/26/2024 2:13 PM CDT us Yomi De La Cruz MD CHEMISTRY Final R esult [facility] [address], [place] [address] * GUM SCORING MACHINE OPERATOR THIN PREP PAP SCREEN IMAGED [[id number]] (01/01/2015 2:00 PM CDT) GUM SCORING MACHINE OPERATOR CYTOLOGY See Anatomic Pathology case 01/06/2015 5:01 PM CDT [facility] Specimen (specimen) (Cervical/Vagina l) Non-Blood / Unknown 01/01/2015 2:00 PM CDT 01/01/2015 4:12 PM CDT us Lin Jimenez NP PATHOLOGY/CYTOLOGY Final Res ult [facility] [address] [place] [address], [place] from Last 3 Months or Most Recently Relevant to Health Maintenance Insurance [facility] WORKERS COMP [employer] [facility] Advance Directives * Full Code (Latest Code Status on File) Date Activated Date Inactivated Comments 08/08/2023 5:52 PM 08/09/2023 2:55 PM Question Answer Comments Code Status Discussion: Reviewed Preferences * Full Code Date Activated Date Inactivated Comments 12/18/2022 4:20 PM 12/22/2022 5:57 PM Question Answer Comments Code Status Discussion: Reviewed Preferences * Full Code Date Activated Date Inactivated Comments 12/17/2022 8:23 PM 12/18/2022 3:31 PM Question Answer Comments Code Status Discussion: Reviewed Preferences * Full Code Date Activated Date Inactivated Comments 11/24/2022 2:58 PM 11/26/2022 5:57 PM Question Answer Comments Code Status Discussion: Reviewed Preferences * Full Code Date Activated Date Inactivated Comments 10/06/2022 8:04 AM 10/07/2022 5:32 PM Question Answer Comments Code Status Discussion: Reviewed Preferences Care Teams Flow Worker Relationship Specialty Start Date End Date Ye Zuniga MBBS [address] [place] [id number] PCP - General Family Practice 03/28/18
--- OUTSIDE RECORDS SUMMARY | 2024-06-17 21:56 | XMS_ITS | Continuity of Care Document ---
Author Name Mauricio User [id number]-a llowed Address Unknown Organization Unknown Address Unknown Procedures FILTER APPLIED:Only known Procedures with Onset Date within the last 5 years Procedure Date Procedure Provider Additiona l Information Status BASIC METABOLIC PANEL (80022) Completed HEPATIC FUNCTION PANEL (44520) Completed CBC W PLT NO DIFF (64652) Completed LIPASE (01526) Completed URINE POCT (88249) Completed UA W/ SEDIMENT EXAM REFLEXED PER CRITERIA (46999) Completed BASIC METABOLIC PANEL (84602) Completed CBC W PLT NO DIFF (12579) Completed ,SERUM (90905) Completed COMP METABOLIC PANEL (88053) Completed CBC W PLT NO DIFF (55275) Completed LIPASE (83248) Completed COMP METABOLIC PANEL (76397) Completed C-REACTIVE PROTEIN (87740) Completed CBC AND DIFFERENTIAL (47250) Completed LIPASE (31210) Completed ADMISSION MED REC MARKER FOR REPORTING AND BPA'S (63128) Completed ADMISSION MED REC MARKER FOR REPORTING AND BPA'S (03273) Completed URINE POCT (13009) Completed UA W/ SEDIMENT EXAM REFLEXED PER CRITERIA (40492) Completed HEPATIC FUNCTION PANEL (73644) Completed CBC W PLT NO DIFF (06555) Completed BASIC METABOLIC PANEL (83106) Completed LIPASE (16832) Completed CBC W PLT NO DIFF (18713) Completed PROTIME-INR (06206) Comp leted BASIC METABOLIC PANEL (88375) Completed ,SERUM (17579) Completed HEPATIC FUNCTION PANEL (76697) Completed LIPASE (30305) Completed Encounters FILTER APPLIED:Only known Encounters with Admission Date within the last 5 years Encounter Location Admission Discharge Billing Code Towel Folder A suki Emergency [id number] [place] Emergency [id number]. [id number] [place] Inpatient [facility] Inpatient [facility] Emergency Emergency [id number]. [id number] RADHA EVANS Emergency Emergency [id number]. [id number] SHAY SHELL Emergency Emergency [id number]. [id number] KETAN MAJOR Emergency [id number]. [id number] QUOC REAGAN
--- OUTSIDE RECORDS SUMMARY | 2024-06-17 21:56 | XMS_ITS | Referral Summary ---
Author Organization [facility] Address [address] [place] [address] Care Team Providers Care Investor Relations Analyst Name Role Phone Ye Zuniga MD Primary Care Provider [phone] Allergies Active Allergy Reactions Criticality Noted Date [...] in an abandoned building, in an overnight chcf, or couch-surfing.) Yes 02/20/2024 Are you worried [...] on file Legal Sex Female 4:01 AM PRECISION MILLWRIGHT Gender Identity Not on file Sexual Orientation [...] 02/15/2024 2:43 PM CDT Plan of Treatment Not on file Procedures Procedure Name Priority Date/Time Associated Diagnosis Comments BASIC METABOLIC PANEL Routine 02/23/2024 7:10 AM CDT from Last 3 Months or Most Recently Relevant to Health Maintenance Results * (ABNORMAL) Basic metabolic panel (02/23/2024 7:10 AM CDT) [facility] Sodium 139 135 - 145 mmol/L 02/23/2024 8:30 AM CDT LABORATORY Potassium 3.6 3.4 - 5.3 mmol/L 02/23/2024 8:[facility] Chloride 101 98 - 107 mmol/L 02/23/2024 8:30 AM [facility] Carbon Dioxide (CO2) 28 22 - 29 mmol/L 02/23/2024 8:30 AM [facility] Anion Gap 10 7 - 15 mmol/L 02/23/2024 8:30 AM [facility] Urea Nitrogen 4.4(L) 6.0 - 20.0 mg/dL 02/23/2024 8:30 AM T LABORATORY Creatinine 0.52 0.51 - 0.95 mg/dL 02/23/2024 8:30 AM [facility] GFR Estimate >90 >60 mL/min/1.7 3m2 02/23/2024 8:30 AM [facility] Comment:eGFR calculated usin 2020 CKD-EPI equation. Calcium 8.8 8.8 - 10.4 mg/dL 02/23/2024 8:30 AM [facility] Comment:Reference intervals for this test were updated on 12/21/2023 to reflect our healthy population more accurately. There may be differences in the flagging of prior results with similar values performed with this method. Those prior results can be interpreted in the context of the updated reference intervals. Glucose 97 70 - 99 mg/dL 02/23/2024 8:30 AM [facility] Blood STRUCTURE OF RIGHT UPPER LIMB / Unknown Venipuncture / Unknown 02/23/2024 7:10 AM CDT 02/23/2024 7:49 AM CDT us Richar Agudelo MD LAB - BLOOD ORDERABLES Final Re sult [facility]AT[facility] [address] floor, [address] [place] [address], [facility] [phone] from Last 3 Months or Most Recently Relevant to Health Maintenance Insurance [employer] Advance Directives For more information, please contact: [phone] * Full Code (Latest Code Status on File) Date Activated Date Inactivated Comments 02/15/2024 11:43 PM 02/25/2024 4:04 PM All basic a nd advanced life-sustaining interventions are performed as appropriate Question Answer Comments Code status determined by: Discussion with pearl paris/ legal decision maker * Full Code Date Activated Date Inactivated Comments 02/04/2024 10:35 PM 02/10/2024 5:44 PM All basic an d advanced life-sustaining interventions are performed as appropriate Question Answer Comments Code status determined by: Discussion with pearl nt/ legal decision maker Care Teams Investor Relations Analyst Relationship Specialty Start Date End Date Ye Zuniga MD [address] [place] [phone] PCP - General 02/22/24
[2024-06-17] MEDS: 0.9 % SODIUM CHLORIDE 500 ML 500 ML IV (21:57)
--- OUTSIDE RECORDS SUMMARY | 2024-06-17 21:57 | XMS_ITS | Encounter Summary ---
Author Organization [facility] Address [address] [place] [address] Care Team Providers Care Screen Printing Press Operator Name Role Phone Ye Zuniga M.D. Primary Care [facility] Reason for Visit * Reason Onset Date Comments Med Refill 06/02/2024 Encounter Details Date Type Department Care Team (Late st Contact Info) Description 06/02/2024 Refill Department of Vascular Medicine in [place], [place] [address] [place] [address] Juan Carlos Reese M.D. [address] [place] [phone] Med Refill Social History Tobacco Use Types Packs/Day Years Used Date Smoking Tobacco: Never Passive Smoke Exposure: Never Smokeless Tobacco: Never Alcohol Use Standard Drinks/Week Comments Yes 1 (1 standard drink = 0.6 oz pur e alcohol) Socially - twice a year [facility] Utilities Answer Date Recorded In the past 12 months has th e electric, gas, oil, or water company [...] 10/01/2022 How often do you attend chur or hinduism services? More than 4 times per year 10/01/2022 Do you belong to any clubs o r organizations such as scientology groups, unions, fraternal or athletic groups, or [...] Answer Date Recorded PHQ-2 Score 2 10/05/2023 [facility] [place] [facility] Occupat ional Health - Occupational Stress [...] your living situation today? I have a [facility] place to live 03/18/2024 Education Answer Date Recorded What is the highest level of school you have completed or the highest degree you have received? Some college, no degree 01/25/2020 Comments No Sex and Gender Information Value Date Recorded Sex Assigned at Female 03/24/2018 8:02 AM CDT Legal Sex Female 4:30 AM CRITICAL CARE REGISTERED NURSE Gender Identity Female 03/24/2018 8:02 AM CDT Sexual Orientation Straight 03/24/2018 8: 02 AM CDT documented as of this encounter Plan of Treatment Upcoming Encounters Date Type Department Care Team (Latest Contact Info) Description 06/20/2024 7:30 AM CRITICAL CARE REGISTERED NURSE Office Visit Department of Family Medicine, [facility], in [place], [place] [address] [place] [phone] Ye Zuniga M.B.B.S., M.D. [address] [place] [phone] 07/05/2024 2:45 PM CRITICAL CARE REGISTERED NURSE Procedure visit Department of Obstetrics and Gynecology in [place], [place] [address] [place] [phone] Yomi Chin M.D. [address] [place] [phone] 07/27/2024 9:00 AM CRITICAL CARE REGISTERED NURSE Clinical Communication Virtual Review in [place], [place] [address] [place] [phone] 07/28/2024 8:20 AM CRITICAL CARE REGISTERED NURSE Appointment Department of Laboratory Medicine and Pathology, [facility], in [place], [place] [address] [place] [phone] Sal Welch M.D. [address] [place] [phone] 07/28/2024 10:30 AM CRITICAL CARE REGISTERED NURSE Office Visit Division of Endocrinology in [place], [place] [address] [place] [phone] Sal Welch M.D. [address] [place] [phone] documented as of this encounter Visit Diagnoses Not on filedocumented in this encounter Additional Health Concerns Assessment Noted Time PHQ-9 Depression Total Score: 8 10/05/19 24 11:15 AM CDT documented as of this encounter Care Teams Screen Printing Press Operator Relationship Specialty Start Date End Date Ye Zuniga M.B.B.S., M.D. [address] [place] [phone] PCP - General Family Medicine 03/28/18 documented as of this encounter
--- OUTSIDE RECORDS SUMMARY | 2024-06-17 21:57 | XMS_ITS | Encounter Summary ---
Author Organization [facility] Address [address] [place] [address] Care Team Providers Care Web Specialist Name Role Phone Ye Zuniga M.D. Primary Care [facility] Reason for Visit * Reason Onset Date Comments Med Refill 06/04/2024 Encounter Details Date Type Department Care Team (Late st Contact Info) Description 06/04/2024 Refill Department of Family Medicine, [facility], in [place], [place] [address] [place] [phone] Ye Zuniga M.B.B.S., [place] [address] [place] [phone] Med Refill Social History Tobacco Use Types Packs/Day Years Used Date Smoking Tobacco: Never Passive Smoke Exposure: Never Smokeless Tobacco: Never Alcohol Use Standard Drinks/Week Comments Yes 1 (1 standard drink = 0.6 oz pur e alcohol) Socially - twice a year [facility] Utilities Answer Date Recorded In the past 12 months has [email or web address] electric, gas, oil, or water company threatened [...] week 10/01/2022 How often do you attend [facility] or restoration services? More than 4 times per year 10/01/2022 Do you belong to any clubs o r organizations such as gnosticist groups, unions, fraternal or athletic groups, or [...] Answer Date Recorded PHQ-2 Score 2 10/05/2023 [facility] of Occupat ional Health - Occupational Stress [...] Date Recorded Employment status Working with temporary [employer] 10/12/2023 Housing Stability Answer Date Recorded What is your living situation today? I have a [facility] place to live 03/18/2024 Education Answer Date Recorded What is the highest level of school you have completed or the highest degree you have received? Some college, no degree 01/25/2020 Comments No Sex and Gender Information Value Date Recorded Sex Assigned at Female 03/24/2018 8:02 AM CDT Legal Sex Female 4:30 AM SHEAR HELPER Gender Identity Female 03/24/2018 8:02 AM CDT Sexual Orientation Straight 03/24/2018 8: 02 AM CDT documented as of this encounter Plan of Treatment Upcoming Encounters Date Type Department Care Team (Latest Contact Info) Description 06/20/2024 7:30 AM SHEAR HELPER Office Visit Department of Family Medicine, [facility], in [place], [place] [address] [place] [phone] Ye Zuniga M.B.B.S., M.D. [address] [place] [phone] 07/05/2024 2:45 PM SHEAR HELPER Procedure visit Department of Obstetrics and Gynecology in [place], [place] [address] [phone] Yomi Chin M.D. [address] [place] [phone] 07/27/2024 9:00 AM SHEAR HELPER Clinical Communication Virtual Review in [place], [place] [address] [place] [phone] 07/28/2024 8:20 AM SHEAR HELPER Appointment Department of Laboratory Medicine and Pathology, [facility], in [place], [place] [address] [place] [phone] Sal Welch M.D. [address] [place] [phone] 07/28/2024 10:30 AM SHEAR HELPER Office Visit Division of Endocrinology in [place], [place] [address] [place] [phone] Sal Welch M.D. [address] [place] [phone] documented as of this encounter Visit Diagnoses Diagnosis Migraine Without Aura Not Intractable Without Status Migrainosus Hypertension Essential Primary documented in this encounter Additional Health Concerns Assessment Noted Time PHQ-9 Depression Total Score: 8 10/05/19 24 11:15 AM CDT documented as of this encounter Care Teams Web Specialist Relationship Specialty Start Date End Date Ye Zuniga M.B.B.S., M.D. [address] [place], [place] [address] [phone] PCP - General Family Medicine 03/28/18 documented as of this encounter
--- OUTSIDE RECORDS SUMMARY | 2024-06-17 21:57 | XMS_ITS | Encounter Summary ---
Author Organization [facility] Address [address] [place] [address] Care Team Providers Care Histopathologist Name Role Phone Ye Zuniga M.D. Primary Care martha Reason for Referral * Outpatient (Routine) - Authorized Specialty Diagnoses / Procedures Referred By Barron t Referred To Contact Diagnoses Management Contraceptive Procedures Injection Visit - Depo-Provera Yomi Chin M.D. [address] [place] [address] Phone: tel: fax: [facility] Region Referral ID Status Reason Start Date Expiration Date V isits Requested Visits Authorized [id number] Authorized 05/08/2024 05/08/2025 1 1 OF TOWN COLLECTION CLERK Encounter Details Date Type Department Care Team (Latest Contact Info) Description 05/08/2024 2:00 PM OUT OF TOWN COLLECTION CLERK Telemedicine Department of Obstetrics and Gynecology in [place], [place] [address] [place] [phone] Yomi Chin M.D. [address] [place] [phone] Management Contraceptive (Primary Dx) Social History Tobacco Use Types Packs/Day Years Used Date Smoking Tobacco: Never Passive Smoke Exposure: Never Smokeless Tobacco: Never Alcohol Use Standard Drinks/Week Comments Yes 1 (1 standard drink = 0.6 oz pur e alcohol) Socially - twice a year [facility] Utilities Answer Date Recorded In the past 12 months has e [employer], gas, oil, or water [employer] threatened to shut off services in your [...] week 10/01/2022 How often do you attend [facility] or baptism services? More than 4 times per year 10/01/2022 Do you belong to any clubs o r organizations such as hinduism groups, unions, fraternal or athletic groups, or [...] Answer Date Recorded PHQ-2 Score 2 10/05/2023 [facility] - Occupational [...] AM CDT Legal Sex Female 4:30 AM OUT OF TOWN COLLECTION CLERK Gender Identity Female 03/24/2018 8:02 AM CDT Sexual Orientation Straight 03/24/2018 8: 02 AM CDT documented as of this encounter Progress Notes * Yomi Chin M.D. - 05/08/2024 2:00 PM CST SUBJECTIVE REASON FOR VISIT No chief complaint on file. HISTORY OF PRESENT ILLNESS Pt called to get depo renewed, has july appointment and would be due. Menstrual History: Patient's last menstrual period was 04/14/2024. REVIEW OF SYSTEMS No comic artist concerns OBJECTIVE PHYSICAL EXAM SKI TOW OPERATOR Exam Amb ASSESSMENT / PLAN Diagnosis List #1 Management Contraceptive #2 Obesity Body Mass Index 30-39.9 Adult #3 Hypertension Essential Primary #4 Polycystic Ovary Syndrome #5 Depression Anxiety #6 Migraine Without Aura Not Intractable Without Status Migrainosus #7 Lumbosacral spondylosis without myelopathy #8 Sprain Of Ligaments Of Cervical Spine Initial Encounter #9 Rhinitis Allergic #10 Pectus Excavatum #11 Pain Cervical #12 Administrative Purpose Exam #13 Chronic Pain Syndrome #14 Effusion Pleural #15 Other Acute Postprocedural Pain #16 Fracture Rib Multiple Closed Initial #17 Anxiety 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 OF TOWN COLLECTION CLERK documented in this encounter Plan of Treatment Upcoming Encounters Date Type Department Care Team (Latest Contact Info) Description 06/20/2024 7:30 AM OUT OF TOWN COLLECTION CLERK Office Visit Department of Family Medicine, [facility], in [address] [phone] Ye Zuniga M.B.B.S., M.D. [address] [place] [address] [place] [phone] 07/05/2024 2:45 PM OUT OF TOWN COLLECTION CLERK Procedure visit Department of Obstetrics and Gynecology in [place], [place] [address], [place] [address] Yomi Chin M.D. [address] [place] [phone] 07/27/2024 9:00 AM OUT OF TOWN COLLECTION CLERK Clinical Communication Virtual Review in [place], [place] [address] [place] [address] 07/28/2024 8:20 AM OUT OF TOWN COLLECTION CLERK Appointment Department of Laboratory Medicine and Pathology, [facility] in [place], [place] [address] [place] [phone] Sal Welch M.D. [address] [place] [phone] 07/28/2024 10:30 AM OUT OF TOWN COLLECTION CLERK Office Visit Division of Endocrinology in [place], [place] [address] [place] [phone] Sal Welch M.D. [address] [place] [phone] Scheduled Orders Name Type Priority Associated Diagnoses Orde r Schedule Injection Visit - Depo-Provera OB Routine Management Contraceptive 4 Occurrences starting 05/08/2024 until 08/06/2025 documented as of this encounter Visit Diagnoses Diagnosis Management Contraceptive- Primary documented in this encounter Additional Health Concerns Assessment Noted Time PHQ-9 Depression Total Score: 8 10/05/19 24 11:15 AM CDT documented as of this encounter Care Teams Histopathologist Relationship Specialty Start Date End Date Ye Zuniga M.B.B.S., M.D. [address] [place] [address] Meri Gillespie [place] [phone] PCP - General Family Medicine 03/28/18 documented as of this encounter
--- OUTSIDE RECORDS SUMMARY | 2024-06-17 21:57 | XMS_ITS | Encounter Summary ---
Author Organization [facility] Address [address] [place] [address] Care Team Providers Care Cullet Crusher And Washer Name Role Phone Ye Zuniga M.D. Primary Care P [facility] Reason for Visit * Reason Comments Other Wound from surgery k eeps opening. Encounter Details Date Type Department Care Team (Latest Contact Info) Description 05/17/2024 4:30 PM PATENT DRAFTER Office Visit Department of Family Medicine, [facility], in [place], [place] [address] [place] [phone] Ye Zuniga M.B.B.S. 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 More than 4 times per year [...] Answer Date Recorded PHQ-2 Score 2 10/05/2023 [facility] Occupat [facility] - Occupational Stress Questionnaire Answer Date Recorded [...] Date Recorded Employment status Working with temporary [email or web address] 10/12/2023 Housing Stability Answer Date Recorded What is your living situation today? I have a [facility] place to live 03/18/2024 Education Answer Date Recorded What is the highest level of school you have completed or the highest degree you have received? Some college, no degree 01/25/2020 Comments No Sex and Gender Information Value Date Recorded Sex Assigned at Female 03/24/2018 8:02 AM CDT Legal Sex Female 4:30 AM PATENT DRAFTER Gender Identity Female 03/24/2018 8:02 AM CDT Sexual Orientation Straight 03/24/2018 8: 02 AM CDT documented as of this encounter Last Filed Vital Signs Vital Sign Reading Time Taken Comments Blood Pressure 142/80 05/17/2024 4:12 PM PATENT DRAFTER Pulse 75 05/17/2024 4:12 PM PATENT DRAFTER Temperature 36.3 C (97.3 F) 05/17/2024 4:11 PM PATENT DRAFTER Respiratory Rate 20 05/17/2024 4:11 PM PATENT DRAFTER Oxygen Saturation - - Inhaled Oxygen Concentration - - Weight 119 kg (262 lb 10.9 oz) 05/17/2024 4:11 P M PATENT DRAFTER Height - - Body Mass Index 36.77 04/11/2024 8:18 AM PATENT DRAFTER documented in this encounter Progress Notes * Ye Zuniga M.B.B.S., M.D. - 05/17/2024 4:30 PM CST SUBJECTIVE CHIEF COMPLAINT / REASON FOR VISIT Kaur Meza is a 38 y.o. female who presents for evaluation of Other (Wound from surgery keeps opening. ). HISTORY OF PRESENT ILLNESS Kaur Meza is a 38-year-old female with a history of ADHD. She is status post exploratory laparotomy with bowel resection for a ruptured appendix. Patient's abdominal wound has healed by secondary retention over the past few weeks. However, she is concerned because she still has occasional drainage. She has had no fever or chills. Patient has a history of ADHD and had previously been taking 30 mg extended release of Adderall. She is currently taking 20 mg. She continues to experience trouble concentrating on her current dose. The following portions of the patient's history were reviewed and updated as appropriate: allergies, current medications, family history, medical history, social history, surgical history, and problem list. REVIEW OF SYSTEMS Pertinent items are noted in HPI. OBJECTIVE VITAL SIGNS BP 142/80 (BP Location: Left arm, Patient Position: Sitting, Cuff Size: Large) Pulse 75 Temp 36.3 ??C (Temporal) Resp 20 Wt 119 kg LMP 04/14/2024 BMI 36.77 kg/m?? Body mass index is 36.77 kg/m??. PHYSICAL EXAMINATION General appearance: alert, cooperative, and no distress Head: normocephalic, without obvious abnormality Eyes: conjunctivae/corneas clear Abdomen: Abdomen is soft with a healing midline scar. There is an area small dehiscence with small clots present. There is no tenderness or erythema. 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 It seems to be healing nicely at this time and for now I would not recommend a making any changes. She may use an absorbent dressing for any drainage. I will increase her Adderall to 25 mg daily. HOME DAY CARE PROVIDER has been reviewed. NT DRAFTER documented in this encounter Plan of Treatment Upcoming Encounters Date Type Department Care Team (Latest Contact Info) Description 06/20/2024 7:30 AM PATENT DRAFTER Office Visit Department of Family Medicine, [facility], in [address] [phone] Ye Zuniga M.B.B.S., M.D. [address] [place] [phone] 07/05/2024 2:45 PM PATENT DRAFTER Procedure visit Department of Obstetrics and Gynecology in [place], [place] [address] [place] [phone] Yomi Chin M.D. [address] [place] [phone] 07/27/2024 9:00 AM PATENT DRAFTER Clinical Communication Virtual Review in [place], [place] [address] [place] [phone] 07/28/2024 8:20 AM PATENT DRAFTER Appointment Department of Laboratory Medicine and Pathology, [facility], in [place], [place] [address] [place] [phone] Sal Welch M.D. [address] [place] [phone] 07/28/2024 10:30 AM PATENT DRAFTER Office Visit Division of Endocrinology in [place], [place] [address] [place] [phone] Sal Welch M.D. 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 [address] [place] [phone] PCP - General Family Medicine 03/28/18 documented as of this encounter
--- OUTSIDE RECORDS SUMMARY | 2024-06-17 21:57 | XMS_ITS ---
Author Organization [facility] Address [address] [place] [address] Care Team Providers Care Machine Carton Marker Name Role Phone Unavailable Unavailable Unavailable Surgery Details Not on file Complications Check Surgery Details section. Procedure Estimated Blood Loss Check Surgery Details section. Procedure Findings Check Surgery Details section. Procedure Specimens Taken Check Surgery Details section.
--- OUTSIDE RECORDS SUMMARY | 2024-06-17 21:57 | XMS_ITS | Encounter Summary ---
Author Organization [facility] Address [address] [place] [address] Care Team Providers Care Application Development Specialist Name Role Phone Ye Zuniga M.D. Primary Care [facility] Encounter Details Date Type Department Care Team (Late st Contact Info) Description 04/18/2024 Clinical Communication Department of Family Medicine, [facility], in [place], [place] [address] [place] [phone] Ye Zuniga M.B.B.S., MGuillermo [address] [place] [phone] Social History Tobacco Use Types Packs/Day Years Used Date Smoking Tobacco: Never Passive Smoke Exposure: Never Smokeless Tobacco: Never Alcohol Use Standard Drinks/Week Comments Yes 1 (1 standard drink = 0.6 oz pur e alcohol) Socially - twice a year [facility] Utilities Answer Date Recorded In the past [...] week 10/01/2022 How often do you attend [facility] or islam services? More than 4 times per year 10/01/2022 Do you belong to any clubs o r organizations such as episcopalian groups, unions, fraternal or athletic groups, or [...] Answer Date Recorded PHQ-2 Score 2 10/05/2023 [facility] - Occupational Stress Questionnaire Answer Date [...] your living situation today? I have a [facility] place to live 03/18/2024 Education Answer Date Recorded What is the highest level of school you have completed or the highest degree you have received? Some college, no degree 01/25/2020 Comments No Sex and Gender Information Value Date Recorded Sex Assigned at Female 03/24/2018 8:02 AM CDT Legal Sex Female 4:30 AM CONSUMER AFFAIRS MANAGER Gender Identity Female 03/24/2018 8:02 AM CDT Sexual Orientation Straight 03/24/2018 8: 02 AM CDT documented as of this encounter Miscellaneous Notes * Telephone Encounter - Paulette Gazra - 04/19/2024 11:53 AM CONSUMER AFFAIRS MANAGER Patient has been scheduled UMER AFFAIRS MANAGER documented in this encounter Plan of Treatment Upcoming Encounters Date Type Department Care Team (Latest Contact Info) Description 06/20/2024 7:30 AM CONSUMER AFFAIRS MANAGER Office Visit [facility], [facility], in [place], [place] [address] [place] [phone] Ye Zuniga M.B.B.S., M.D. [address] [place] [phone] 07/05/2024 2:45 PM CONSUMER AFFAIRS MANAGER Procedure visit Department of Obstetrics and Gynecology in [place], [place] [address], [place] [phone] Yomi Chin M.D. [address] [place] [phone] 07/27/2024 9:00 AM CONSUMER AFFAIRS MANAGER Clinical Communication Virtual Review in [place], [place] [address] [place] [phone] 07/28/2024 8:20 AM CONSUMER AFFAIRS MANAGER Appointment Department of Laboratory Medicine and Pathology, [facility], in [place], [place] [address] [place] [phone] Sal Welch M.D. [address] [place] [phone] 07/28/2024 10:30 AM CONSUMER AFFAIRS MANAGER Office Visit Division of Endocrinology in [place], [place] [address] [place] [phone] Sal Welch M.D. [address] [place] [phone] documented as of this encounter Visit Diagnoses Not on filedocumented in this encounter Additional Health Concerns Assessment Noted Time PHQ-9 Depression Total Score: 8 10/05/19 24 11:15 AM CDT documented as of this encounter Care Teams Application Development Specialist Relationship Specialty Start Date End Date Ye Zuniga M.B.B.S., MMilan. [address] [place] [phone] PCP - General Family Medicine 03/28/18 documented as of this encounter
--- OUTSIDE RECORDS SUMMARY | 2024-06-17 21:57 | XMS_ITS | Encounter Summary ---
Author Organization [facility] Address [address] [place] [address] Care Team Providers Care Cured Meat Packing Supervisor Name Role Phone Ye Zuniga M.D. [facility] Reason for Referral * Outpatient (Routine) - Authorized Specialty Diagnoses / Procedures Referred By Barron t Referred To Contact Ye Zuniga M.B.B.S., M.D. [address] [place] [address] Phone: tel: fax: [facility] Region Referral ID Status Reason Start Date Expiration Date V isits Requested Visits Authorized [id number] Authorized 06/13/2024 12/13/2025 1 1 ONALIZATION SPECIALIST Encounter Details Date Type Department Care Team (Late st Contact Info) Description 06/13/2024 Orders Only [facility] Ye Zuniga M.B.B.S., [place] [address] [place] [phone] Social History Tobacco Use Types Packs/Day Years Used Date Smoking Tobacco: Never Passive Smoke Exposure: Never Smokeless Tobacco: Never Alcohol Use Standard Drinks/Week Comments Yes 1 (1 standard drink = 0.6 oz pur e alcohol) Socially - twice a year [facility] Utilities Answer Date Recorded In the [...] often do you attend [facility] or hindu services? More than 4 times per year 10/01/2022 Do you belong to any clubs o r organizations such as samaritan groups, unions, fraternal or athletic groups, or [...] Answer Date Recorded PHQ-2 Score 2 10/05/2023 [facility] of Occupat ional [facility] - Occupational Stress Questionnaire Answer Date [...] AM CDT Legal Sex Female 4:30 AM PERSONALIZATION SPECIALIST Gender Identity Female 03/24/2018 8:02 AM CDT Sexual Orientation Straight 03/24/2018 8: 02 AM CDT documented as of this encounter Plan of Treatment Upcoming Encounters Date Type Department Care Team (Latest Contact Info) Description 06/20/2024 7:30 AM PERSONALIZATION SPECIALIST Office Visit Department of Family Medicine, [facility], in [place], [place] [address] [place] [phone] Ye Zuniga M.B.B.S., M.D. [address] [place] [phone] 07/05/2024 2:45 PM PERSONALIZATION SPECIALIST Procedure visit Department of Obstetrics and Gynecology in [place], [place] [address] [phone] Yomi hCin M.D. [address] [place] [phone] 07/27/2024 9:00 AM PERSONALIZATION SPECIALIST Clinical Communication Virtual Review in [place], [place] 200 [place] [phone] 07/28/2024 8:20 AM PERSONALIZATION SPECIALIST Appointment Department of Laboratory Medicine and Pathology, [facility], in [place], [place] [address] [place] [phone] Sal Welch M.D. [address] [place] [phone] 07/28/2024 10:30 AM PERSONALIZATION SPECIALIST Office Visit Division of Endocrinology in [place], [place] [address] [place] [phone] Sal Welch M.D. [address] [place] [phone] Scheduled Referrals Name Type Priority Associated Diagnoses Orde r Schedule Primary Care nurse visit (clinic) - [facility] Region; BP check; BP check only (LOSS PREVENTION LEAD) Outpatient Referral Routine Expected: 06/27/2024, Expires: 12/10/2024 documented as of this encounter Visit Diagnoses Not on filedocumented in this encounter Additional Health Concerns Assessment Noted Time PHQ-9 Depression Total Score: 8 10/05/19 24 11:15 AM CDT documented as of this encounter Care Teams Cured Meat Packing Supervisor Relationship Specialty Start Date End Date Ye Zuniga M.B.B.SSmia, Mildred. [address] [place] [phone] PCP - General Family Medicine 03/28/18 documented as of this encounter
--- OUTSIDE RECORDS SUMMARY | 2024-06-17 21:57 | XMS_ITS | Encounter Summary ---
Author Organization [facility] Address [address] [place] [address] Care Team Providers Care Purchasing Assistant Name Role Phone Ye Zuniga M.D. Primary Care martha Reason for Referral * Outpatient (Routine) - Authorized Specialty Diagnoses / Procedures Referred By Barron mcrae Referred To Contact Diagnoses Management Contraceptive Procedures Injection Visit - Depo-Provera Yomi Chin M.D. [address] [place] [address] Phone: tel: fax: [facility] Region Referral ID Status Reason Start Date Expiration Date V isits Requested Visits Authorized [id number] Authorized 05/08/2024 05/08/2025 1 1 ACT CENTER REP Encounter Details Date Type Department Care Team (Late Contact Info) Description 05/08/2024 Orders Only Department of Obstetrics and Gynecology in [address] [phone] Yomi Chin M.D. [address] [place] [phone] Management Contraceptive (Primary Dx) Social History Tobacco Use Types Packs/Day Years Used Date Smoking Tobacco: Never Passive Smoke Exposure: Never Smokeless Tobacco: Never Alcohol Use Standard Drinks/Week Comments Yes 1 (1 standard drink = 0.6 oz pur e alcohol) Socially - twice a year [facility] Utilities Answer Date Recorded In the past 12 months has e [employer], gas, oil, or water [employer] threatened to shut off services in your [...] week 10/01/2022 How often do you attend [facility] or jew services? More than 4 times per year [...] Answer Date Recorded PHQ-2 Score 2 10/05/2023 [facility] of Occupat ional [facility] - Occupational Stress Questionnaire Answer Date [...] AM CDT Legal Sex Female 4:30 AM CONTACT CENTER REP Gender Identity Female 03/24/2018 8:02 AM CDT Sexual Orientation Straight 03/24/2018 8: 02 AM CDT documented as of this encounter Plan of Treatment Upcoming Encounters Date Type Department Care Team (Latest Contact Info) Description 06/20/2024 7:30 AM CONTACT CENTER REP Office Visit Department of Family Medicine, [facility], in [place], [place] [address] [place] [phone] Ye Zuniga M.B.B.S., Katlyn [address] [place] [phone] 07/05/2024 2:45 PM CONTACT CENTER REP Procedure visit Department of Obstetrics and Gynecology in [place], [place] [address], [place] [phone] Yomi Chin M.D. [address] [place] [phone] 07/27/2024 9:00 AM CONTACT CENTER REP Clinical Communication Virtual Review in [place], [place] 200 [place] [phone] 07/28/2024 8:20 AM CONTACT CENTER REP Appointment Department of Laboratory Medicine and Pathology, [facility], in [place], [place] [address] [place] [phone] Sal Welch M.D. [address] [place] [phone] 07/28/2024 10:30 AM CONTACT CENTER REP Office Visit Division of Endocrinology in [place], [place] [address] [place] [phone] Sal Welch M.D. [address] [place] [phone] Scheduled Orders Name Type Priority Associated Diagnoses Orde r Schedule Injection Visit - Depo-Provera OB Routine Management Contraceptive Expected: 07/10/2024, Expires: 08/06/2025 documented as of this encounter Visit Diagnoses Diagnosis Management Contraceptive- Primary documented in this encounter Additional Health Concerns Assessment Noted Time PHQ-9 Depression Total Score: 8 10/05/19 24 11:15 AM CDT documented as of this encounter Care Teams Purchasing Assistant Relationship Specialty Start Date End Date Ye Zuniga M.B.B.SMildred Gao. [address] [place] [phone] PCP - General Family Medicine 03/28/18 documented as of this encounter
--- OUTSIDE RECORDS SUMMARY | 2024-06-17 21:57 | XMS_ITS | Referral Summary ---
Author Organization [facility] Address [address] [place] [address] Care Team Providers Care Wire Frame Lampshade Maker Name Role Phone Ye Zuniga M.D. Primary Care [facility] Source Comments Patient records contain information from all sites at [facility]. For routine questions regarding patient records, call [phone] during business hours, M-F 8:00 AM - 5:00 PM Central Time. Record requests for emergency care only can be directed to [phone] at any time.[facility] Encounters Date Type Department Care Team Description 06/13/2024 Orders Only [facility] Ye Zuniga M.B.B.S. MGuillermo 06/04/2024 Refill Department of Family Medicine, [facility], in [place], [place] [address] [place] [address] Ye Zuniga M.B.B.S., M.D. Med Refill 06/02/2024 Refill Department of Vascular Medicine in [place], [place] [address] [place] [address] Juan Carlos Reese M.D. Med Refill 05/17/2024 4:30 PM SUSTAINABILITY PROJECT COORDINATOR Office Visit Department of Family Medicine, [facility], in [place], [place] [address] [facility] [place] [phone] Ye Zuniga M.B.B.S., M.D. 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 Management Contraceptive (Primary Dx) 05/08/2024 2:00 PM SUSTAINABILITY PROJECT COORDINATOR Telemedicine Department of Obstetrics and Gynecology in [place], [place] [address], [place] [phone] Yomi Chin M.D. Management Contraceptive (Primary Dx) 04/26/2024 Refill Division of Endocrinology in [place], [place] [address] [place] [address] Sal Welch M.D. Med Refill 04/19/2024 11:06 AM SUSTAINABILITY PROJECT COORDINATOR - 04/19/2024 11:59 PM SUSTAINABILITY PROJECT COORDINATOR Emergency [facility] [address] [place] [phone] Discharge Disposition: Home or Self Care 04/19/2024 Orders Only Senior Services in [facility] [address], [place] [address] Rossi Saha APRN, C.N.PSima 04/18/2024 Clinical Communication Department of Family Medicine, [facility], in [place], [place] [address] [place] [address] Ye Zuniga M.B.BSimaSSima, MGuillermo 04/18/2024 11:00 AM SUSTAINABILITY PROJECT COORDINATOR Nurse Only Department of Obstetrics and Gynecology in [place], [place] [address], [place] [phone] Anthony Foss Jr., M.D. [place], Allyson S, L.PSimaN. Nurse Visit (Depo Provera injection ) Discharge Disposition: Home or Self Care 04/14/2024 1:12 PM SUSTAINABILITY PROJECT COORDINATOR - 04/14/2024 11:59 PM SUSTAINABILITY PROJECT COORDINATOR Hospital Encounter Department of Radiology, [facility], in [place], [place] [address] [place] [address] Viviana Sevilla APRN, C.NSimaPSima, M.S.N. 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; Chronic Pain Syndrome; Obesity Body Mass Index 30-39.9 Adult 03/31/2024 Clinical Communication Department of Family [facility], [facility], in [address] [address] Ye Zuniga M.B.BSimaSSima, MGuillermo Med Question (Oxycodone ) 03/28/2024 Clinical Communication Department of [facility], [facility], in [address] [address] Ye Zuniga M.B.BSimaSSima, MGuillermo PandaDoc Form ([facility] for dressing changes) 03/28/2024 Clinical Communication Department of [facility], [address] [address] Ye Zuniga M.B.B.SSima, Katlyn PandaDoc Form ([facility] - Verbal Order - Dressing Changes 03/27/24) 03/28/2024 12:56 PM CDT - 03/28/2024 11:59 PM CDT Emergency [facility] [address] [place] [phone] Discharge Disposition: Home or Self Care 03/27/2024 Clinical Communication Department of [facility], [facility], in [address] [address] Ye Zuniga M.B.BJered, Katlyn PandaDoc Form ([facility] 03/21-05/19) 03/23/2024 Clinical Communication Division of Trauma Critical Care and General Surgery in [address] [address] Ye Núñez M.D. 03/23/2024 Clinical Communication Department of [facility], [facility], in [address] [address] Ye Zuniga M.B.BSimaSSima, Katlyn PandaDoc Form ([facility] PH Order [id number]) 03/23/2024 2:00 PM CDT Telemedicine Department of Hospital Internal Medicine in [address] [phone] Johnathon Huffman M.D., M.P.H. Palma Gongora, PSimaA.-C. Lesion Liver (Primary Dx) 03/23/2024 11:27 AM CDT - 03/23/2024 11:59 PM CDT Hospital Encounter Department of Laboratory Medicine in [address] [address] Johnathon Huffman M.D., M.P.H. Lesion Liver; Enteropathogenic Escherichia Coli Infection Discharge Disposition: Home or Self Care 03/22/2024 2:30 PM CDT Telemedicine Department of Hospital Internal Medicine in [address] [phone] Johnathon Huffman M.D., M.P.H. MataJenna daniels APRN, C.N.P. Wound Infection Subsequent 03/21/2024 Clinical Communication Department of [facility], [facility], in [place], [place] [address] [place] [address] Ye Zuniga M.B.B.S., M.D. 03/20/2024 Refill Division of Trauma Critical Care and General Surgery in [place], [place] [address] [place] [address] Leann Charlton P.A.-C. Med Refill 03/20/2024 Clinical Communication Department of [facility], [facility], in [place], [place] [address] [place] [address] Ye Zuniga M.B.B.S., Katlyn Communication 03/20/2024 Clinical Communication Department of [facility], [facility], in [place], [place] [address] [place] [address] Jenna Clarke R.N. Post Hospital Follow-up 03/20/2024 Refill Department of [facility], [facility], in [place], [place] [address] [place] [address] Ye Zuniga M.B.B.S., Katlyn Med Refill 03/20/2024 Clinical Communication [facility] [address] [place] [address] Johnathon Huffman M.D., M.P.H. 03/19/2024 Orders Only Department of Obstetrics and Gynecology in [place], [place] [address] [place] [address] Yomi Chin M.D. 03/18/2024 1:03 PM CDT - 03/19/2024 3:27 PM CDT Emergency [facility], [facility] [place], Fourth Floor [address] [place] [address] Yomi Desai P.A.-C. Shah, Vijay, M.D. Johnathon Huffman M.D., M.P.H. Enteropathogenic Escherichia Coli Infection (Primary Dx); Nausea And Vomiting; Lesion Liver Discharge Disposition: Home or Self Care from Last 3 Months Allergies Active Allergy Reactions Criticality Noted Date [...] for pain. 300 tablet 3 5:47 PM SUSTAINABILITY PROJECT COORDINATOR 04/12/20 23 Active sennosides-docusat e sodium (SENOKOT-S) [...] for muscle spasm 40 tablet 3 03/21/20 24 Active NaCl 0.9 % irrigation IRRIGATE WITH 10 ML DIRECTED 3 TIMES DAILY. MOIST TO DRY DRESSING CHANGES 1000 mL 03/20/20 24 Active NORMAL SALINE FLUSH KIT 10 ML, ACH,Indications:Wo und Infection Subsequent Use as directed 99 kit 03/22/20 24 Active oxyCODONE (Roxicodone) 10 mg IR tabletIndications: Chronic Pain/Nonacute Pain Take 1 tablet (10 mg total) by mouth every 3 (three) hours as needed for pain Indication: Chronic Pain/Nonacute Pain. Do not take with acute post-surgical prescription 90 tablet 03/31/20 24 Active OLANZapine (ZyPREXA Zydis) 5 mg disintegrating tablet DISSOLVE 1 TABLET IN MOUTH EVERY 8 HOURS NEEDED FOR NAUSEA AND VOMITING FOR UP TO 20 DOSES Active tirzepatide (Zepbound) 2.5 mg/0.5 mL injection penIndications:Pritesh abbasi Body Mass Index 30-39.9 Adult Inject 2.5 mg under the skin every 7 (seven) days. Follow prescriber's dose escalation instructions as tolerated. 2 mL 1 04/28/20 Active Additional Information Patient not taking.Reported on 05/17/2024 tirzepatide (Zepbound) 5 mg/0.5 mL injection penIndications:Pritesh abbasi Body Mass Index 30-39.9 Adult Inject 5 mg under the skin every 7 (seven) days. Follow prescriber's dose escalation instructions. 2 mL 2 04/28/20 Active Additional Information Patient not taking.Reported on 05/17/2024 tirzepatide (Zepbound) 7.5 mg/0.5 mL injection penIndications:Pritesh abbasi Body Mass Index 30-39.9 Adult Inject 7.5 mg under the skin every 7 (seven) days. Follow prescriber's dose escalation instructions. 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 30 capsule 05/29/20 24 025 Active amphetamine-dextro amphetamine (Adderall XR) 25 [...] in 24 hours. 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 Diagnosis: Chronic pain syndrome/pectus excavatum/aortic dissection (ICD-10 code G89.4/Q67.6/I71.0) Previous interventions: Heat/ice, medical cannabis, physical therapy, surgery Medication prescribed: Oxycodone 10 mg Duration of prescription: Four weeks Number of tablets/duration: 90 Tapering plan: No Frequency of visits: 3-6 months months MNPMP review/documentation: Yes Initial drug screening requested: Yes Urine screening frequency: annually Pharmacy: [facility] [place]ain 03/14/2018 Obesity Body Mass Index 30-39.9 Adult [...] 09/01/2011 12/11/2022 Obesity Unspecified 03/31/2007 10/04/19 19 Immunizations Name Administration Dates Next Due 4vHPV (discontinued) 02/21/2007,10/28/2006,08/09 HepB Adult 04/21/2005,10/24/2004,09/25/2004 Influenza, Unspecified 06/10/2012,02/21/2010 MMR 09/30/1999,11/11/1988 SARS-COV-2 (COVID-19) - MODERNA(Discontinued) 10/05/2023(Deferred: Patient decision) Td (Adult), adsorbed 09/30/1999 Tdap 03/19/2021,07/07/2010 Social History Tobacco Use Types Packs/Day Years Used Date Smoking Tobacco: Never Passive Smoke Exposure: Never Smokeless Tobacco: Never Tobacco Cessation:Counseling Given: Not Answered Alcohol Use Standard Drinks/Week Comments Yes 1 (1 standard drink = 0.6 oz pur e alcohol) Socially - twice a year [facility] Utilities Answer Date Recorded In [...] week 10/01/2022 How often do you attend [facility] or jew services? More than 4 times per year 10/01/2022 Do you belong to any clubs o r organizations such as baptist groups, unions, fraternal or athletic groups, or [...] Answer Date Recorded PHQ-2 Score 2 10/05/2023 [facility] - Occupational Stress Questionnaire Answer Date [...] your living situation today? I have a [facility] place to live 03/18/2024 Education Answer Date Recorded What is the highest level of school you have completed or the highest degree you have received? Some college, no degree 01/25/2020 Comments No Sex and Gender Information Value Date Recorded Sex Assigned at Female 03/24/2018 8:02 AM CDT Legal Sex Female 4:30 AM SUSTAINABILITY PROJECT COORDINATOR Gender Identity Female 03/24/2018 8:02 AM CDT Sexual Orientation Straight 03/24/2018 8: 02 AM CDT Last Filed Vital Signs Vital Sign Reading Time Taken Comments Blood Pressure 142/80 05/17/2024 4:12 PM SUSTAINABILITY PROJECT COORDINATOR Pulse 75 05/17/2024 4:12 PM SUSTAINABILITY PROJECT COORDINATOR Temperature 36.3 C (97.3 F) 05/17/2024 4:11 PM SUSTAINABILITY PROJECT COORDINATOR Respiratory Rate 20 05/17/2024 4:11 PM SUSTAINABILITY PROJECT COORDINATOR Oxygen Saturation 94% 03/19/2024 12:00 PM CDT Inhaled Oxygen Concentration - - Weight 119 kg (262 lb 10.9 oz) 05/17/2024 4:11 P M SUSTAINABILITY PROJECT COORDINATOR Height 180 cm (5' 10.87) 04/11/2024 8:18 AM SUSTAINABILITY PROJECT COORDINATOR Body Mass Index 36.77 04/11/2024 8:18 AM SUSTAINABILITY PROJECT COORDINATOR Plan of Treatment Upcoming Encounters Date Type Department Care Team (Latest Contact Info) Description 06/20/2024 7:30 AM SUSTAINABILITY PROJECT COORDINATOR Office Visit Department of Family Medicine, [facility], in [place], [place] [address] [place] [phone] Ye Zuniga M.B.B.SSima, M.Prachi [address] [place] [phone] 07/05/2024 2:45 PM SUSTAINABILITY PROJECT COORDINATOR Procedure visit Department of Obstetrics and Gynecology in [place], [place] [address] [place] [phone] Yomi Chin M.D. [address] [place] [phone] 07/27/2024 9:00 AM SUSTAINABILITY PROJECT COORDINATOR Clinical Communication Virtual Review in [place], [place] [address] [place] [address] 07/28/2024 8:20 AM SUSTAINABILITY PROJECT COORDINATOR Appointment Department of Laboratory Medicine and Pathology, [facility], in [place], [place] [address] [place] [phone] Sal Welch M.D. [address] [place] [phone] 07/28/2024 10:30 AM SUSTAINABILITY PROJECT COORDINATOR Office Visit Division of Endocrinology in [place], [place] [address] [place] [phone] Sal Welch M.D. [address] [place] [phone] Medical Devices Explanted Type Area Rn Operating Room Device Identifier Shelf Expiration Date Model / Serial / Lot Plt Pectus Lrn Nl 14 - [id number] Implanted:Qty: 1 on 08/08/2018 by Colt Schafer M.D. at [facility] Explanted:Qty: 1 on 02/27/2022 by Len Leija M.D., Ph.D. Hardware e.g. pins/screws/r ods [employer] 01-2424 / / Procedures Procedure Name Priority Date/Time Associated Diagnosis Comments HOLTER MONITOR - IN CLINIC NEWS CLERK Routine 04/16/2024 12:49 PM SUSTAINABILITY PROJECT COORDINATOR Arrhythmia Atrial CT ABDOMEN PELVIS WITH IV CONTRAST RAD - Routine (most inpatients and all outpatients) 04/14/2024 2:15 PM SUSTAINABILITY PROJECT COORDINATOR Infection Following A Procedure Deep Incisional Surgical [...] PM CDT HXZZORDERS Routine 05/27/2012 9:39 AM SUSTAINABILITY PROJECT COORDINATOR from Last 3 Months or Most Recently Relevant to Health Maintenance Results * HOLTER MONITOR - IN CLINIC NEWS CLERK (04/16/2024 12:49 PM SUSTAINABILITY PROJECT COORDINATOR) Min Heart Rate 58 bpm INFOB IONIC [...] Duration 0 duration INFOBION IC MOME AF [place] 0 percent INFOBIONIC MOME Symptom Count 2 [...] to 123 bpm. No ectopy was present. Payroll Bookkeeper: KOTA Spann / KOTA Momin Procedure Note [...] to 123 bpm. No ectopy was present. Payroll Bookkeeper: KOTA Spann / KOTA Momin Ye Banuelos M.D. CV CARDIAC SERV ICES PROCEDURES Final Result INFOBIONIC MOME NA * CT Abdomen Pelvis with IV Contrast (04/14/2024 2:15 PM SUSTAINABILITY PROJECT COORDINATOR) Only the most recent of3 resultswithin the time period is included. Anatomical Region Laterality Modality Abdomen, Pelvis, Abdominal R ST LOS, Abdominal ARZ LOS, Abdominal FLA LOS N/A Computed Tomograp hy, Computed Tomography 04/14/2024 2:12 PM SUSTAINABILITY PROJECT COORDINATOR Impressions 04/14/2024 3:34 PM SUSTAINABILITY PROJECT COORDINATOR 1. Resolving postoperative changes at the ileocecectomy, as described, with continuing decrease in focal inflammation between the right lobe of the liver and abdominal wall. 2. New nonobstructive proximal left ureteral stone, with bilateral calyceal tip stones. 3. Stable aortic dissection. 4. Negative for new, increased, or worrisome fluid collections. Narrative 04/14/2024 3:34 PM SUSTAINABILITY PROJECT COORDINATOR EXAM: CT ABDOMEN PELVIS WITH IV CONTRAST COMPARISON: Prior abdominopelvic CT scans of 03/28/2024, 03/18/2024, and 03/02/2024. FINDINGS: Postsurgical changes of exploratory laparotomy with small bowel resection and ileocecectomy for perforated appendicitis. Resolving postoperative changes at the [id number] ileoascending colostomy, which is widely patent (). [...] the adjacent abdominal wall (see 348 and 472). Stable findings of aortic dissection with patent mesenteric and renal vessels with the dissection extending into the left common iliac artery. Lateral nonobstructing calyceal tip stones in both kidneys with 3 mm nonobstructive stone in proximal left ureter (see 4/57). Prior cholecystectomy. Otherwise normal appearance to the [...] for perforated appendicitis. Resolvingpostoperative changes at the [id number] ileoascending colostomy, whichis widely patent (). Slight decrease in persistent nodular soft tissue just posterior to the ascendingcolon, which is decreasing slowly ( and ). Prior scans have demonstrated inflammatory changes and fluid collectionbetween/involving the right lobe of the liver and adjacent posteriorabdominal wall. Negative for well-defined fluid collection here, butcontinuing focal inflammatory changes between the liver and the adjacent abdominal wall (see and ). Stable findings of aortic dissection [...] for new, increased, or worrisome fluid collections. Viviana Sevilla APRN, C.N.P., M.S.N. IMG C [...] findings in the chest. Hua Gold M.D. Eulalio CT PROCEDURES Final Result * DX Abdomen [...] IMPRESSION: Nonspecific abdomen. Yomi De La Cruz [facility] DIAGNOSTIC IMAGING PROCEDUR ES Final Result * [...] M.P.H. LAB BLOOD ADD-ON Suni l Result [facility] [address] [place] [address], [place] OWAT [facility] in [place] [address] [place] [address] * (ABNORMAL) CBC with Differential, Blood (03/23/2024 11:33 AM CDT) Only the most recent of3 resultswithin the time period is included. [facility] Hemoglobin 10.8(L) 11.6 - 15.0 g/dL 03/23/2024 [...] 11:33 AM CDT 03/23/2024 11:33 AM CDT us Johnathon Huffman M.D., M.P.H. LAB BLOOD ADD-ON Suni l Result [facility] [address] [place] [address], [facility] [address] [facility] in [place] [address] [place] [address] * Phosphorus Inorganic (03/19/2024 10:00 AM CDT) Phosphorus (Inorganic), S 3.7 2.5 - 4.5 mg/dL 03/19/2024 12:07 PM CDT DTL Blood (Blood, Venous) 03/19/2024 10:00 AM CDT 03/19/2024 11:36 AM CDT Bob Alvarez APRN, C.N.P., D.N.P. LAB BLOOD ADD-ON Final Result Performing Organization Address [facility] Co de Phone Number [facility] [address] [place] [address], [facility] DTL [facility] [address] [place] [address] * Magnesium (03/19/2024 10:00 AM CDT) Magnesium, S 1.9 1.7 - 2.3 mg/dL 03/19/2024 12:07 PM CDT DTL Blood (Blood, Venous) 03/19/2024 10:00 AM CDT 03/19/2024 11:36 AM CDT Bob Alvarez APRN, C.N.P., D.N.P. LAB BLOOD ADD-ON Final Result [facility] [address] [place] [address], [facility] DTL [facility] [address] [place] [address] * (ABNORMAL) Comprehensive Metabolic Panel (03/19/2024 10:00 AM CDT) Pathologist [facility] Potassium, S 3.8 3.6 - 5.2 mmol/L [...] CDT 03/19/2024 11:36 AM CDT Bob Alvarez APRN C.N.P., D.N.P. LAB BLOOD ADD-ON Final Result [facility] [address] [place] [address], [facility] DTL [facility] [address] [place] [address] * (ABNORMAL) GI Pathogen Panel, PCR, Feces [...] performed using the FDA-cleared FilmArray GI Panel ([employer] Semi-Urgent This is a semi-urgen t result(DIAS) [facility] Stool (Stool) 03/19/2024 4:2 1 AM CDT 03/19/2024 5:14 AM CDT Bob Alvarez APRN, C.N. P., D.N.P. LAB MICROBIOLOGY - GENERAL ORDERABLES Final Result [facility] [address] [place] [address], [facility] DTL [address] [facility] [address] [place] [address] * Troponin T, 2 Hour with 6 Hour Reflex, 5th Gen (03/18/2024 5:11 PM CDT) Troponin T, 2 hr, 5th gen <6 <=10 ng/L 03/18/2024 5:36 PM CDT [facility] 2H Delta 0 ng/L 03/18/2024 5:36 PM CDT [facility] Comment:6 hour collection no t indicated. 2H Delta Interp Not Changing 03/18/2024 5:36 PM CDT [facility] Blood 03/18/2024 5:11 PM CDT 03/18/2024 5:14 PM CDT Mary Soto APRN, C.N.P. LAB BLOOD TROPONI N Final Result Performing Organization Address [facility] Co de Phone Number [facility] [address] [place] [address], [facility] [address] [place] [address] * ECG 12 Lead (03/18/2024 4:54 PM CDT) Only the most recent of2 resultswithin the time period is included. Ventricular Rate ECG/Min 76 BPM MUSE RI Interval 220 ms MUSE QRSD Interval 88 ms MUSE QT Interval 396 ms MUSE QTC Interval 445 ms MUSE P Alden 54 degrees MUSE R Alden 130 degrees MUSE T Wave Ald[place] 75 degrees MUSE 03/18/2024 4:54 PM CDT [...] change was found Reviewed by KOTA Hartley us Yomi Desai P.A.-C. ECG ORDERABLES Final Res ult Performing Organization Address City/[facility]/ZIP Co de Phone Number MUSE NA * CT Chest Angiogram Acute [...] quadrant anastomosis aredecreased from prior. Mary Soto APRN C.N.P. IMG CT PROCEDURES Final Result * Troponin T, Baseline with 2 Hour/6 Hour Reflex Biomarker Panel (03/18/2024 1:40 PM CDT) [facility] Troponin T, Baseline, 5th gen <6 <=10 ng/L 03/18/2024 2:14 PM CDT [facility] Blood (Blood, Venous) 03/18/2024 1:40 PM CDT 03/18/2024 1:46 PM CDT Mary Soto APRN, C.N.P. LAB BLOOD TROPONI N Final Result [facility] [address] [place], [place] [phone] [place] [address] [address] [place] [address] * (ABNORMAL) NT-Pro B-Type Natriuretic Peptide (BNP) (03/18/2024 1:40 PM CDT) [facility] NT-Pro BNP 165(H) <160 pg/mL 03/18/2024 2:14 PM CDT [facility] Comment: NT-proBNP values less than 300 pg/mL [...] APRN, C.N.P. LAB BLOOD ADD-ON Final Result [facility] [address] [place] [address], [facility] [address] [place] [address] * Prothrombin Time (PT) (03/18/2024 1:40 PM CDT) [facility] Prothrombin Time, P 10.8 9.4 - 12.5 sec 03/18/2024 1:54 PM CDT [facility] 1.0 0.9 - 1.1 03/18/2024 1:54 PM CDT [facility] Comment: ----ADDITIONAL INFORMATION---- Standard intensity warfarin therapeutic range: 2.0 to 3.0 High intensity warfarin therapeutic range: 2.5 to 3.5 Blood (Blood, Venous) 03/18/2024 1:40 PM CDT 03/18/2024 1:46 PM CDT Mary Soto APRN, C.N.P. LAB BLOOD ADD-ON Final Result [facility] [address] [place] [address], [facility] [address] [place] [address] * Type and Screen (with Reflex Antibody ID) (03/18/2024 1:40 PM CDT) [facility] ABORh A Pos Not applicable 03/18/2024 2:13 PM CDT STRM Antibody Screen Negative Negative 03/18/2024 2:21 PM CDT STRM Type & Screen Expiration 03/21/2024 23:59 03/18/2024 2:13 PM CDT STRM Testing Location [place] DEFAULT 03/18/2024 1:47 PM CDT [facility] Blood (Blood, Venous) 03/18/2024 1:40 PM CDT 03/18/2024 1:47 PM CDT Mary Soto APRN, C.N.P. LAB BLOOD BANK TE ST ORDERABLES Final Result [facility] [address] [place] [address], [facility] [address] [place] [address] * (ABNORMAL) Basic Metabolic Panel (03/18/2024 1:40 PM CDT) [facility] Potassium, P 3.6 3.6 - 5.2 [...] APRN, C.N.P. LAB BLOOD ADD-ON Final Result [facility] [address] [place] [address], [facility] [facility] [address] [place] [address] * Lipid Panel (11/13/2022 8:21 AM CDT) [...] M.D. LAB BLOOD ADD-O N Final Result [facility] [address] [place] [address], [facility] in [place] [address] [place] [address] * HPV with Genotyping, PCR, ThinPrep (03/19/2021 [...] 5:07 PM CDT 03/21/2021 6:38 AM CDT Anthony Foss Jr., M.D. LAB MICROBIOLOGY - GEN ERAL ORDERABLES Final Result [facility] [address] [place] [address], [place] [facility] [place] [address] [place] [address] * HXZZORDERS (05/27/2012 9:39 AM SUSTAINABILITY PROJECT COORDINATOR) HIV-1/-2 Antibody Negative Negative POWERCHART Comment: Negative [...] is negative. Testing is performed using the Hydreliss Anti-HIV 1+2 chemiluminescence immunoassay. Test Performed by: [place] [address] Mosquito Sprayer: Zen Reddy III, M.D. Blood 05/27/2012 9:39 AM SUSTAINABILITY PROJECT COORDINATOR Anthony Foss Jr., M.D. LAB HISTORICAL ORDERS Final Result POWERCHART from Last 3 Months or Most Recently Relevant to Health Maintenance Insurance [employer] [id number] Advance Directives For more information, please contact: [phone] * Full Code (Latest Code Status on [...] Answer Comments Full Code: Discussed Care Teams Wire Frame Lampshade Maker Relationship Specialty Start Date End Date Ye Zuniga M.B.BSimaSSima, M.Dave. [address] [place] [address] [place] [id number] PCP - General Family Medicine 03/28/18
== END 2024-06-17 22:51 | disposition home or self-care (01) ==
PROVIDERS: Emergency Provider Emergency Medicine; PCP Family Medicine
DX: M54.9 Dorsalgia, unspecified (principal)
CPT/HCPCS: 36415; 71275; 74174; 80048; 80076; 83605; 84484; 85025; 85610; 93005; 94761; 96374; 96375; 99284; 99285; J1171; J2405; J7030; Q9967

== ENCOUNTER 2025-03-23 14:13 | Outpatient (CLI) | payer OTHER, SELFPAY | END 2025-03-23 14:14 | disposition home or self-care (01) | LOC: NFLDUCREF 14:13 | PROVIDERS: PCP Family Medicine; Visit Provider Physician Assistant Surgical | DX: R21 Rash and other nonspecific skin eruption (principal) | CPT/HCPCS: 86787 ==